=== PATIENT | female | born 1950 | race African-American/Black ===

== ENCOUNTER 2020-11-10 05:16 | Day surgery (SDC) | payer OTHER ==
[2020-11-09 17:37] VITALS: BMI 30.9
[2020-11-10] MEDS ORDERED: HEPARIN NA (PORCINE) 5,000 UNITS/ML 1ML VIAL ONE ×3 (07:26→14:21)
[2020-11-10] MEDS ORDERED: LIDOCAINE HCL 1%, 10 MG/ML (20ML VIAL) ONE ×2 (07:27→12:56)
[2020-11-10] MEDS ORDERED: ceFAZolin SODIUM 1 GM VIAL IVPB ONE (13:10)
[2020-11-10] MEDS ORDERED: MIDAZOLAM HCL 2 MG/2 ML SINGLE DOSE VIAL ONE ×2 (13:17→13:38)
[2020-11-10] MEDS ORDERED: ceFAZolin SODIUM 1 GM VIAL ONE (13:38)
[2020-11-10] MEDS ORDERED: LIDOCAINE HCL 1%, 10 MG/ML (20ML VIAL) PNB ONE (13:55)
[2020-11-10] MEDS ORDERED: DEXAMETHASONE SOD PHOSPHATE 4 MG/1 ML VIAL ONE (14:06)
[2020-11-10] MEDS ORDERED: oxyCODONE HCL 5 MG TABLET PO PRN (15:13)
[2020-11-10] MEDS ORDERED: ONDANSETRON 4 MG/2 ML VIAL IVPUSH PRN (15:13)
[2020-11-10] MEDS ORDERED: LACTATED RINGERS SOLUTION 1,000 ML IV SCH (15:15)
[2020-11-10] MEDS ORDERED: ePHEDrine SULFATE 50 MG/1 ML AMPULE ONE (16:27)
[2020-11-10] MEDS ORDERED: GLYCOPYRROLATE 0.2 MG/1 ML VIAL ONE (16:28)
[2020-11-10] MEDS: ACETAMINOPHEN 1000 MG/100 ML VIAL (NON FORMULARY) IVPB ONE ×2 (17:30→17:40)
[2020-11-10] MEDS ORDERED: ACETAMINOPHEN INJECTION 100 ML IVPB ONE (17:39)
[2020-11-10] MEDS ORDERED: oxyCODONE HCL 5 MG TABLET ONE (18:03)
[2020-11-10 18:51] VITALS: BP 95/51; PULSE 103; TEMP 96.9
== END 2020-11-10 20:30 | disposition home or self-care (01) ==
LOC: JASU-SURG 05:16
PROVIDERS: ATTEND Surgery Vascular Surgery
PROC: 047Q3ZZ Dilation of Left Anterior Tibial Artery, Percutaneous Approach (ICD-10-PCS; principal; 2020-11-10 12:00)
DX: I70.212 Atherosclerosis of native arteries of extremities with intermittent claudication, left leg (principal); L97.529 Non-pressure chronic ulcer of other part of left foot with unspecified severity
CPT/HCPCS: 37229; C1885; 76000-TC-FY; 94760; J0131; J1644

== ENCOUNTER 2021-01-25 13:12 | Inpatient (IN) | payer OTHER ==
[2021-01-25] MEDS ORDERED: SODIUM CHLORIDE 500 ML IV STA (14:30)
[2021-01-25] MEDS ORDERED: ACETAMINOPHEN 1000 MG/100 ML VIAL (NON FORMULARY) IVPB ONE (15:28)
[2021-01-25] MEDS ORDERED: traMADol HCL 50 MG TABLET PO ONE ×2 (15:28→22:09)
[2021-01-25] MEDS ORDERED: traMADol HCL 50 MG TABLET ONE (15:41)
[2021-01-25] MEDS ORDERED: ACETAMINOPHEN INJECTION 100 ML IVPB ONE (15:42)
[2021-01-25 16:02] LABS: URINE APPEARANCE TURBID; URINE BILIRUBIN 2+ (NEGATIVE); URINE COLOR RED; URINE GLUCOSE (UA) NEGATIVE (NEGATIVE); URINE KETONE NEGATIVE (NEGATIVE); URINE LEUK ESTERASE 3+ (NEGATIVE); URINE NITRITE POSITIVE (NEGATIVE); URINE PROTEIN 1+ (NEGATIVE); URINE UROBILINOGEN 0.2 mg/dL (0.2-1.0)
[2021-01-25] MEDS ORDERED: CEFEPIME HCL/D5W 1 GM/50 ML BAG IVPB ONE (16:06)
[2021-01-25] MEDS ORDERED: VANCOMYCIN 1 GM in D5W (PRE-DOCKED) 1,000 MG/250 ML IVPB ONE (16:06)
[2021-01-25 16:14] LABS: EPI CELLS NONE SEEN /uL (0-25.1); HYALINE CASTS NONE SEEN /uL (0-3.1)
[2021-01-25 16:15] LABS: INR 1.16 (0.83-1.09); PROTHROMBIN TIME (PATIENT) 14.2 SEC (9.7-13.0)
[2021-01-25 16:15] LABS: URINE BACTERIA NONE SEEN /uL (0-1359); URINE RBC 30-35 /uL (0-23.9); URINE WBC 15-20 /uL (0-25.8)
[2021-01-25 16:41] LABS: BASO % 0.4 % (0-2.0); EOS % 2.6 % (0-4.5); HEMATOCRIT 38.4 % (32.4-45.2); HEMOGLOBIN 12.5 GM/dL (10.7-15.3); MCH 28.6 pg (25.7-33.7); MCHC 32.4 g/dl (32.0-36.0); MEAN CELL VOLUME 88.3 fl (80-96); MEAN PLT VOLUME 9.4 fl (7.5-11.1); MONO % 9.2 % (3.8-10.2); NEUT % 74.8 % (42.8-82.8); PLATELET COUNT 284 K/MM3 (134-434); RBC 4.35 M/mm3 (3.60-5.2); RDW 15.6 % (11.6-15.6); WHITE BLOOD COUNT 10.3 K/mm3 (4.0-10.0)
[2021-01-25 17:11] LABS: POTASSIUM 4.3 mmol/L (3.5-5.1)
[2021-01-25 17:12] LABS: CALCIUM 9.6 mg/dL (8.5-10.1)
[2021-01-25 17:13] LABS: ALBUMIN 3.8 g/dl (3.4-5.0); BLOOD UREA NITROGEN 15.6 mg/dL (7-18); MAGNESIUM 2.2 mg/dL (1.8-2.4)
[2021-01-25 17:16] LABS: CREATININE 0.7 mg/dL (0.55-1.3)
[2021-01-25 17:18] LABS: BILIRUBIN,TOTAL 0.3 mg/dL (0.2-1); TOT PROT 8.4 g/dl (6.4-8.2)
[2021-01-25] MEDS ORDERED: VANCOMYCIN 1 GRAM (PRE-DOCKED) 1,000 MG/250 ML BAG IVPB ONE (17:28)
[2021-01-25] MEDS ORDERED: CEFEPIME 1 GM/100 ML BAG IVPB ONE (17:29)
[2021-01-25] MEDS ORDERED: DOCUSATE SODIUM 100 MG CAPSULE (FP) PO ONE ×2 (18:30→20:06)
[2021-01-25] MEDS ORDERED: oxyCODONE HCL 5 MG TABLET PO ONE (18:30)
[2021-01-25] MEDS ORDERED: oxyCODONE HCL 5 MG TABLET ONE (18:36)
[2021-01-25] MEDS ORDERED: LIDOCAINE 5% TOPICAL PATCH TP ONE (20:52)
[2021-01-25] MEDS: LIDOCAINE PATCH REMOVAL MC SCH (22:51)
[2021-01-26] MEDS ORDERED: MORPHINE SULFATE 2 MG/ML VIAL IVPUSH ONE (00:22)
[2021-01-26] MEDS ORDERED: CEFEPIME HCL/D5W 1 GM/50 ML BAG IVPB SCH (02:00)
[2021-01-26] MEDS ORDERED: CEFEPIME 1 GM in DEXTROSE 5%-WATER - 50 ML IVPB SCH (02:42)
[2021-01-26 02:47] VITALS: BMI 30.7
[2021-01-26] MEDS: ACETAMINOPHEN 1000 MG/100 ML VIAL (NON FORMULARY) IVPB PRN ×2 (04:41→19:08)
[2021-01-26 07:54] LABS: BASO % 0.4 % (0-2.0); EOS % 3.1 % (0-4.5); HEMATOCRIT 33.4 % (32.4-45.2); HEMOGLOBIN 11.1 GM/dL (10.7-15.3); LYMPH % 16.6 % (8-40); MCH 28.9 pg (25.7-33.7); MCHC 33.2 g/dl (32.0-36.0); MEAN CELL VOLUME 87.2 fl (80-96); MEAN PLT VOLUME 8.6 fl (7.5-11.1); MONO % 11.6 % (3.8-10.2); NEUT % 68.3 % (42.8-82.8); PLATELET COUNT 247 K/MM3 (134-434); RBC 3.83 M/mm3 (3.60-5.2); RDW 15.6 % (11.6-15.6); WHITE BLOOD COUNT 6.9 K/mm3 (4.0-10.0)
[2021-01-26] MEDS ORDERED: GABAPENTIN 300 MG CAPSULE PO SCH (08:00)
[2021-01-26] MEDS ORDERED: traMADol HCL 50 MG TABLET PO ONE (08:00)
[2021-01-26 08:25] LABS: POTASSIUM 4.3 mmol/L (3.5-5.1)
[2021-01-26 08:32] LABS: CALCIUM 8.6 mg/dL (8.5-10.1)
[2021-01-26 08:33] LABS: ALBUMIN 3.1 g/dl (3.4-5.0); BLOOD UREA NITROGEN 12.4 mg/dL (7-18); MAGNESIUM 2.1 mg/dL (1.8-2.4)
[2021-01-26 08:36] LABS: CREATININE 0.6 mg/dL (0.55-1.3); PHOSPHOROUS 3.9 mg/dL (2.5-4.9)
[2021-01-26 08:38] LABS: BILIRUBIN,TOTAL 0.4 mg/dL (0.2-1); TOT PROT 6.9 g/dl (6.4-8.2)
[2021-01-26] MEDS ORDERED: DEXTROSE 5%-WATER - 50 ML IVPB ONE (09:42)
[2021-01-26] MEDS ORDERED: CEFEPIME HCL 1 GM VIAL (RESTRICTED TO ID) ONE ×2 (09:42→16:07)
[2021-01-26] MEDS: METOPROLOL TARTRATE 25 MG TABLET (FP) PO SCH ×2 (09:51→21:00)
[2021-01-26] MEDS: PANTOPRAZOLE 20 MG TABLET PO SCH (09:51)
[2021-01-26] MEDS ORDERED: PIPERACILLIN/TAZOB 3.375 GM 3.375 GM in DEXTROSE 5%-WATER - 50 ML IVPB SCH (10:00)
[2021-01-26] MEDS ORDERED: AZTREONAM 1 GM in DEXTROSE 5%-WATER - 50 ML IVPB SCH (11:30)
[2021-01-26] MEDS ORDERED: VANCOMYCIN 1 GM in D5W (PRE-DOCKED) 1,000 MG/250 ML IVPB SCH (12:00)
[2021-01-26] MEDS ORDERED: VANCOMYCIN 1 GRAM (PRE-DOCKED) 1,000 MG/250 ML BAG IVPB ONE (12:00)
[2021-01-26] MEDS ORDERED: GABAPENTIN 100 MG CAPSULE ONE (13:04)
[2021-01-26] MEDS ORDERED: GABAPENTIN 300 MG CAPSULE ONE (13:04)
[2021-01-26] MEDS: GABAPENTIN 300 MG CAPSULE PO SCH ×2 (13:25→21:00)
[2021-01-26] MEDS: ARIPiprazole 2 MG TABLET PO SCH (13:27)
[2021-01-26] MEDS ORDERED: GABAPENTIN 300 MG, GABAPENTIN 200 MG PO SCH (14:00)
[2021-01-26] MEDS ORDERED: DEXTROSE 5%-WATER 100 ML IVPB ONE (16:07)
[2021-01-26] MEDS: traMADol HCL 50 MG TABLET PO PRN (16:11)
[2021-01-26] MEDS: CEFEPIME 1 GM in DEXTROSE 5%-WATER 1 GM/100 ML BAG IVPB SCH (17:47)
[2021-01-26] MEDS: traZODone HCL 50 MG TABLET (FP) PO SCH (21:00)
[2021-01-26] MEDS: ATORVASTATIN CA 40 MG TABLET (FP) PO SCH (21:00)
[2021-01-26] MEDS: LIDOCAINE PATCH REMOVAL MC SCH (21:00)
[2021-01-26] MEDS ORDERED: PRAMIPEXOLE DIHYDROCHLORIDE 0.5 MG TABLET PO SCH (22:00)
[2021-01-27] MEDS ORDERED: CEFEPIME HCL 1 GM VIAL (RESTRICTED TO ID) ONE ×3 (00:40→16:38)
[2021-01-27] MEDS ORDERED: DEXTROSE 5%-WATER 100 ML IVPB ONE ×3 (00:40→16:38)
[2021-01-27] MEDS: CEFEPIME 1 GM in DEXTROSE 5%-WATER 1 GM/100 ML BAG IVPB SCH ×3 (02:00→18:19)
[2021-01-27] MEDS: traMADol HCL 50 MG TABLET PO PRN ×2 (03:47→11:03)
[2021-01-27] MEDS: GABAPENTIN 300 MG CAPSULE PO SCH ×3 (06:02→21:48)
[2021-01-27 07:14] LABS: HEMATOCRIT 34.1 % (32.4-45.2); HEMOGLOBIN 11.1 GM/dL (10.7-15.3); MCH 28.7 pg (25.7-33.7); MCHC 32.6 g/dl (32.0-36.0); MEAN CELL VOLUME 88.1 fl (80-96); MEAN PLT VOLUME 9.3 fl (7.5-11.1); PLATELET COUNT 252 K/MM3 (134-434); RBC 3.87 M/mm3 (3.60-5.2); RDW 15.3 % (11.6-15.6); WHITE BLOOD COUNT 6.1 K/mm3 (4.0-10.0)
[2021-01-27 07:34] LABS: POTASSIUM 3.9 mmol/L (3.5-5.1)
[2021-01-27 07:42] LABS: BLOOD UREA NITROGEN 14.9 mg/dL (7-18); CALCIUM 8.5 mg/dL (8.5-10.1); CREATININE 0.5 mg/dL (0.55-1.3)
[2021-01-27] MEDS ORDERED: PT OWN MED DRAWER 7, Y5N ONE (08:32)
[2021-01-27] MEDS: ASPIRIN 81 MG CHEWABLE TABLETS PO SCH (09:14)
[2021-01-27] MEDS: METOPROLOL TARTRATE 25 MG TABLET (FP) PO SCH ×2 (09:14→21:48)
[2021-01-27] MEDS: PANTOPRAZOLE 20 MG TABLET PO SCH (09:14)
[2021-01-27] MEDS: CLOPIDOGREL BISULFATE 75 MG TABLET (FP) PO SCH (09:14)
[2021-01-27] MEDS: ARIPiprazole 2 MG TABLET PO SCH (09:15)
[2021-01-27] MEDS: LIDOCAINE 5% TOPICAL PATCH TP SCH (11:04)
[2021-01-27] MEDS: ACETAMINOPHEN 325 MG TABLET (FP) PO PRN ×2 (13:20→21:55)
[2021-01-27] MEDS: oxyCODONE HCL 5 MG TABLET PO PRN (18:18)
[2021-01-27] MEDS: COLLAGENASE CLOSTRIDIUM HIST. 30 GRAMS TUBE TP SCH (19:29)
[2021-01-27] MEDS: PRAMIPEXOLE DIHYDROCHLORIDE 0.25 MG TABLET PO SCH (21:49)
[2021-01-27] MEDS: traZODone HCL 50 MG TABLET (FP) PO SCH (21:49)
[2021-01-27] MEDS: LIDOCAINE PATCH REMOVAL MC SCH (21:50)
[2021-01-27] MEDS: ATORVASTATIN CA 40 MG TABLET (FP) PO SCH (21:57)
[2021-01-27] MEDS ORDERED: LIDOCAINE PATCH REMOVAL MC SCH ×2 (22:00)
[2021-01-28] MEDS ORDERED: CEFEPIME HCL 1 GM VIAL (RESTRICTED TO ID) ONE ×3 (01:58→18:08)
[2021-01-28] MEDS ORDERED: DEXTROSE 5%-WATER 100 ML IVPB ONE ×3 (01:59→18:08)
[2021-01-28] MEDS: CEFEPIME 1 GM in DEXTROSE 5%-WATER 1 GM/100 ML BAG IVPB SCH ×3 (02:25→18:10)
[2021-01-28] MEDS: oxyCODONE HCL 5 MG TABLET PO PRN ×3 (03:45→20:54)
[2021-01-28] MEDS: GABAPENTIN 300 MG CAPSULE PO SCH ×3 (05:49→21:07)
[2021-01-28] MEDS: ACETAMINOPHEN 325 MG TABLET (FP) PO PRN ×3 (05:51→18:24)
[2021-01-28] MEDS ORDERED: PT OWN MED DRAWER 7, Y5N ONE ×3 (09:36→14:09)
[2021-01-28] MEDS: METOPROLOL TARTRATE 25 MG TABLET (FP) PO SCH ×2 (09:38→21:06)
[2021-01-28] MEDS: ASPIRIN 81 MG CHEWABLE TABLETS PO SCH (09:38)
[2021-01-28] MEDS: CLOPIDOGREL BISULFATE 75 MG TABLET (FP) PO SCH (09:38)
[2021-01-28] MEDS: PANTOPRAZOLE 20 MG TABLET PO SCH (09:38)
[2021-01-28] MEDS: ARIPiprazole 2 MG TABLET PO SCH (09:41)
[2021-01-28] MEDS: LIDOCAINE 5% TOPICAL PATCH TP SCH (09:42)
[2021-01-28 09:53] LABS: BASO % 0.6 % (0-2.0); EOS % 6.4 % (0-4.5); HEMATOCRIT 34.8 % (32.4-45.2); HEMOGLOBIN 11.3 GM/dL (10.7-15.3); LYMPH % 16.3 % (8-40); MCH 28.7 pg (25.7-33.7); MCHC 32.5 g/dl (32.0-36.0); MEAN CELL VOLUME 88.4 fl (80-96); MEAN PLT VOLUME 9.4 fl (7.5-11.1); MONO % 11.8 % (3.8-10.2); NEUT % 64.9 % (42.8-82.8); PLATELET COUNT 228 K/MM3 (134-434); RBC 3.94 M/mm3 (3.60-5.2); RDW 15.4 % (11.6-15.6); WHITE BLOOD COUNT 6.5 K/mm3 (4.0-10.0)
[2021-01-28 10:08] LABS: POTASSIUM 4.6 mmol/L (3.5-5.1)
[2021-01-28 10:11] LABS: ALBUMIN 3.1 g/dl (3.4-5.0); BLOOD UREA NITROGEN 21.6 mg/dL (7-18); CALCIUM 9.1 mg/dL (8.5-10.1)
[2021-01-28 10:14] LABS: CREATININE 0.7 mg/dL (0.55-1.3)
[2021-01-28 10:16] LABS: BILIRUBIN,TOTAL 0.3 mg/dL (0.2-1)
[2021-01-28 10:17] LABS: TOT PROT 7.2 g/dl (6.4-8.2)
[2021-01-28] MEDS ORDERED: METOPROLOL TARTRATE 25 MG TABLET (FP) PO SCH (12:28)
[2021-01-28] MEDS: COLLAGENASE CLOSTRIDIUM HIST. 30 GRAMS TUBE TP SCH (14:28)
[2021-01-28] MEDS: traMADol HCL 50 MG TABLET PO PRN (15:22)
[2021-01-28] MEDS: ATORVASTATIN CA 40 MG TABLET (FP) PO SCH (21:06)
[2021-01-28] MEDS: LIDOCAINE PATCH REMOVAL MC SCH (21:10)
[2021-01-28] MEDS: traZODone HCL 50 MG TABLET (FP) PO SCH (21:11)
[2021-01-28] MEDS: PRAMIPEXOLE DIHYDROCHLORIDE 0.25 MG TABLET PO SCH (21:11)
[2021-01-29] MEDS: SENNOSIDES 8.6MG TABLET (FP) PO SCH ×2 (00:35→21:14)
[2021-01-29] MEDS ORDERED: CEFEPIME HCL 1 GM VIAL (RESTRICTED TO ID) ONE ×3 (00:44→17:50)
[2021-01-29] MEDS ORDERED: DEXTROSE 5%-WATER 100 ML IVPB ONE ×3 (00:44→17:51)
[2021-01-29] MEDS: CEFEPIME 1 GM in DEXTROSE 5%-WATER 1 GM/100 ML BAG IVPB SCH ×3 (01:01→17:53)
[2021-01-29] MEDS: oxyCODONE HCL 5 MG TABLET PO PRN ×3 (03:58→20:29)
[2021-01-29] MEDS: GABAPENTIN 300 MG CAPSULE PO SCH ×3 (05:19→21:14)
[2021-01-29 09:21] LABS: POTASSIUM 4.2 mmol/L (3.5-5.1)
[2021-01-29 09:31] LABS: ALBUMIN 3.3 g/dl (3.4-5.0); CALCIUM 9.2 mg/dL (8.5-10.1)
[2021-01-29 09:32] LABS: BLOOD UREA NITROGEN 17.7 mg/dL (7-18)
[2021-01-29 09:34] LABS: CREATININE 0.6 mg/dL (0.55-1.3)
[2021-01-29 09:36] LABS: BILIRUBIN,TOTAL 0.3 mg/dL (0.2-1); TOT PROT 7.2 g/dl (6.4-8.2)
[2021-01-29] MEDS: traMADol HCL 50 MG TABLET PO PRN ×2 (09:37→18:08)
[2021-01-29] MEDS ORDERED: PT OWN MED DRAWER 7, Y5N ONE (10:00)
[2021-01-29] MEDS: PANTOPRAZOLE 20 MG TABLET PO SCH (10:02)
[2021-01-29] MEDS: CLOPIDOGREL BISULFATE 75 MG TABLET (FP) PO SCH (10:02)
[2021-01-29] MEDS: ACETAMINOPHEN 325 MG TABLET (FP) PO PRN ×2 (10:02→15:33)
[2021-01-29] MEDS: ASPIRIN 81 MG CHEWABLE TABLETS PO SCH (10:03)
[2021-01-29] MEDS: METOPROLOL TARTRATE 25 MG TABLET (FP) PO SCH ×2 (10:03→21:14)
[2021-01-29] MEDS: ARIPiprazole 2 MG TABLET PO SCH (10:04)
[2021-01-29] MEDS: LIDOCAINE 5% TOPICAL PATCH TP SCH (10:12)
[2021-01-29] MEDS: POLYETHYLENE GLYCOL 3350 119 GM BTL PO SCH (10:20)
[2021-01-29] MEDS: COLLAGENASE CLOSTRIDIUM HIST. 30 GRAMS TUBE TP SCH (15:34)
[2021-01-29] MEDS: PRAMIPEXOLE DIHYDROCHLORIDE 0.25 MG TABLET PO SCH (21:14)
[2021-01-29] MEDS: ATORVASTATIN CA 40 MG TABLET (FP) PO SCH (21:14)
[2021-01-29] MEDS: traZODone HCL 50 MG TABLET (FP) PO SCH (21:14)
[2021-01-29] MEDS: LIDOCAINE PATCH REMOVAL MC SCH (21:15)
[2021-01-30] MEDS ORDERED: CEFEPIME HCL 1 GM VIAL (RESTRICTED TO ID) ONE ×2 (00:42→10:07)
[2021-01-30] MEDS ORDERED: DEXTROSE 5%-WATER 100 ML IVPB ONE ×2 (00:42→10:07)
[2021-01-30] MEDS: CEFEPIME 1 GM in DEXTROSE 5%-WATER 1 GM/100 ML BAG IVPB SCH ×2 (01:00→10:11)
[2021-01-30] MEDS: traMADol HCL 50 MG TABLET PO PRN ×3 (01:36→18:23)
[2021-01-30] MEDS: ACETAMINOPHEN 325 MG TABLET (FP) PO PRN ×3 (04:06→21:37)
[2021-01-30] MEDS: oxyCODONE HCL 5 MG TABLET PO PRN ×2 (04:46→14:37)
[2021-01-30] MEDS: GABAPENTIN 300 MG CAPSULE PO SCH ×3 (05:02→21:31)
[2021-01-30 09:00] LABS: BASO % 0.7 % (0-2.0); EOS % 5.1 % (0-4.5); HEMATOCRIT 34.2 % (32.4-45.2); HEMOGLOBIN 11.3 GM/dL (10.7-15.3); LYMPH % 17.2 % (8-40); MCH 28.9 pg (25.7-33.7); MEAN CELL VOLUME 87.4 fl (80-96); MONO % 16.4 % (3.8-10.2); NEUT % 60.6 % (42.8-82.8); PLATELET COUNT 237 K/MM3 (134-434); RBC 3.91 M/mm3 (3.60-5.2); RDW 15.3 % (11.6-15.6)
[2021-01-30 09:24] LABS: POTASSIUM 3.9 mmol/L (3.5-5.1)
[2021-01-30 09:39] LABS: BLOOD UREA NITROGEN 16.8 mg/dL (7-18)
[2021-01-30 09:42] LABS: CREATININE 0.5 mg/dL (0.55-1.3)
[2021-01-30 09:43] LABS: CALCIUM 8.9 mg/dL (8.5-10.1)
[2021-01-30] MEDS: PANTOPRAZOLE 20 MG TABLET PO SCH (10:12)
[2021-01-30] MEDS: ASPIRIN 81 MG CHEWABLE TABLETS PO SCH (10:12)
[2021-01-30] MEDS: CLOPIDOGREL BISULFATE 75 MG TABLET (FP) PO SCH (10:12)
[2021-01-30] MEDS: METOPROLOL TARTRATE 25 MG TABLET (FP) PO SCH ×2 (10:12→21:32)
[2021-01-30] MEDS: LIDOCAINE 5% TOPICAL PATCH TP SCH (10:13)
[2021-01-30] MEDS: ARIPiprazole 2 MG TABLET PO SCH (10:15)
[2021-01-30] MEDS: POLYETHYLENE GLYCOL 3350 119 GM BTL PO SCH (10:16)
[2021-01-30] MEDS: COLLAGENASE CLOSTRIDIUM HIST. 30 GRAMS TUBE TP SCH (16:02)
[2021-01-30] MEDS ORDERED: CEFPODOXIME PROXETIL 100 MG TABLET PO ONE (18:27)
[2021-01-30] MEDS: ATORVASTATIN CA 40 MG TABLET (FP) PO SCH (21:31)
[2021-01-30] MEDS: traZODone HCL 50 MG TABLET (FP) PO SCH (21:31)
[2021-01-30] MEDS: PRAMIPEXOLE DIHYDROCHLORIDE 0.25 MG TABLET PO SCH (21:32)
[2021-01-30] MEDS: SENNOSIDES 8.6MG TABLET (FP) PO SCH (21:32)
[2021-01-30] MEDS: LIDOCAINE PATCH REMOVAL MC SCH (21:33)
[2021-01-30 22:06] VITALS: BP 150/65; PULSE 60; TEMP 98.6
[2021-01-31] MEDS ORDERED: oxyCODONE HCL 5 MG TABLET PO PRN (00:22)
== END 2021-01-31 01:40 | DRG 699 ==
LOC: JER 13:12 → JERBED 17:21 → J7W 22:35 → J6S 01-27 20:33
PROVIDERS: ADMIT Hospitalist; ATTEND Internal Medicine
DX: T83.518A Infection and inflammatory reaction due to other urinary catheter, initial encounter (principal); N39.0 Urinary tract infection, site not specified; G04.1 Tropical spastic paraplegia; L98.498 Non-pressure chronic ulcer of skin of other sites with other specified severity; R71.0 Precipitous drop in hematocrit; N31.9 Neuromuscular dysfunction of bladder, unspecified; F25.9 Schizoaffective disorder, unspecified; I10 Essential (primary) hypertension; K21.9 Gastro-esophageal reflux disease without esophagitis; I73.9 Peripheral vascular disease, unspecified; G89.29 Other chronic pain; Y83.8 Other surgical procedures as the cause of abnormal reaction of the patient, or of later complication, without mention of misadventure at the time of the procedure; I11.0 Hypertensive heart disease with heart failure; I50.9 Heart failure, unspecified; N20.0 Calculus of kidney; R31.0 Gross hematuria; B96.89 Other specified bacterial agents as the cause of diseases classified elsewhere; Z88.0 Allergy status to penicillin
CPT/HCPCS: 36415; 74176-TC; 80048; 80053; 81003; 83605; 83735; 84100; 85025; 85027; 85610; 86850; 86900; 86901; 87086; 87186; 97161-GP; 99285-25; C9803; J0131; U0003

== ENCOUNTER 2021-04-20 04:27 | Day surgery (SDC) | payer OTHER ==
[2021-04-19 11:01] VITALS: BMI 31.9
[2021-04-20 08:39] LABS: HEMATOCRIT 37.8 % (32.4-45.2); HEMOGLOBIN 12.3 GM/dL (10.7-15.3); MCH 29.1 pg (25.7-33.7); MCHC 32.4 g/dl (32.0-36.0); MEAN CELL VOLUME 89.8 fl (80-96); MEAN PLT VOLUME 9.3 fl (7.5-11.1); PLATELET COUNT 259 K/MM3 (134-434); RBC 4.21 M/mm3 (3.60-5.2); RDW 16.7 % (11.6-15.6); WHITE BLOOD COUNT 7.4 K/mm3 (4.0-10.0)
[2021-04-20 08:42] LABS: INR 1.12 (0.83-1.09); PROTHROMBIN TIME (PATIENT) 13.7 SEC (9.7-13.0)
[2021-04-20 08:45] LABS: ACTIVATED PTT 29.6 SECONDS (25.2-36.5)
[2021-04-20 09:01] LABS: CALCIUM 9.4 mg/dL (8.5-10.1)
[2021-04-20 09:02] LABS: BLOOD UREA NITROGEN 17.8 mg/dL (7-18)
[2021-04-20 09:05] LABS: CREATININE 0.6 mg/dL (0.55-1.3)
[2021-04-20] MEDS ORDERED: HEPARIN NA (PORCINE) 5,000 UNITS/ML 1ML VIAL ONE (10:45)
[2021-04-20] MEDS ORDERED: ceFAZolin SODIUM 1 GM VIAL IVPB ONE (10:50)
[2021-04-20] MEDS ORDERED: LIDOCAINE HCL 1%, 10 MG/ML (20ML VIAL) ONE (10:53)
[2021-04-20] MEDS ORDERED: PROPOFOL 20 ML ONE (11:02)
[2021-04-20] MEDS ORDERED: MIDAZOLAM HCL 2 MG/2 ML SINGLE DOSE VIAL ONE (11:02)
[2021-04-20] MEDS ORDERED: ceFAZolin SODIUM 1 GM VIAL ONE (11:13)
[2021-04-20] MEDS ORDERED: ACETAMINOPHEN INJECTION 100 ML IVPB ONE (11:55)
[2021-04-20] MEDS ORDERED: ACETAMINOPHEN 1000 MG/100 ML VIAL (NON FORMULARY) IVPB ONE ×2 (11:55→16:36)
[2021-04-20] MEDS ORDERED: oxyCODONE HCL 5 MG TABLET ONE (12:12)
[2021-04-20] MEDS ORDERED: oxyCODONE HCL 5 MG TABLET PO ONE (12:15)
[2021-04-20] MEDS ORDERED: ONDANSETRON 4 MG/2 ML VIAL IVPUSH PRN (12:21)
[2021-04-20] MEDS ORDERED: oxyCODONE HCL 5 MG TABLET PO PRN ×2 (12:21)
[2021-04-20] MEDS ORDERED: LACTATED RINGERS SOLUTION 1,000 ML IV SCH (12:30)
[2021-04-20 18:30] VITALS: BP 130/73; PULSE 76; TEMP 98
== END 2021-04-20 15:00 ==
LOC: JASU-SURG 04:27
PROVIDERS: ATTEND Surgery Vascular Surgery
PROC: B41DYZZ Fluoroscopy of Aorta and Bilateral Lower Extremity Arteries using Other Contrast (ICD-10-PCS; 2021-04-20)
PROC: 047K3D1 Dilation of Right Femoral Artery with Intraluminal Device, using Drug-Coated Balloon, Percutaneous Approach (ICD-10-PCS; principal; 2021-04-20 10:00)
DX: L97.829 Non-pressure chronic ulcer of other part of left lower leg with unspecified severity (principal)
CPT/HCPCS: 36245; 37226; C1877; C2623; 36415; 76000-TC-FY; 80048; 85027; 85610; 85730; 94760; J0131; J1644

== ENCOUNTER 2021-10-05 16:31 | Inpatient (IN) | payer OTHER ==
[2021-10-05] MEDS ORDERED: ACETAMINOPHEN 1000 MG/100 ML BAG IVPB ONE (17:39)
[2021-10-05] MEDS ORDERED: ACETAMINOPHEN INJECTION 100 ML IVPB ONE (18:10)
[2021-10-05 19:00] LABS: BASO % 0.3 % (0-2.0); EOS % 3.6 % (0-4.5); HEMATOCRIT 32.9 % (32.4-45.2); HEMOGLOBIN 11.3 GM/dL (10.7-15.3); LYMPH % 15.8 % (8-40); MCH 29.8 pg (25.7-33.7); MCHC 34.2 g/dl (32.0-36.0); MEAN PLT VOLUME 8.6 fl (7.5-11.1); MONO % 11.1 % (3.8-10.2); NEUT % 69.2 % (42.8-82.8); PLATELET COUNT 297 10^3/uL (134-434); RBC 3.78 M/mm3 (3.60-5.2); RDW 15.3 % (11.6-15.6); WHITE BLOOD COUNT 9.7 K/mm3 (4.0-10.0)
[2021-10-05 19:10] LABS: INR 1.19 (0.83-1.09); PROTHROMBIN TIME (PATIENT) 13.3 SEC (9.7-13.0)
[2021-10-05 19:13] LABS: ACTIVATED PTT 28.8 SECONDS (25.2-36.5)
[2021-10-05] MEDS ORDERED: VANCOMYCIN 1 GM in D5W (PRE-DOCKED) 1,000 MG/250 ML IVPB ONE (19:19)
[2021-10-05 19:24] LABS: EPI CELLS >36 /uL (0-25.1); HYALINE CASTS 2 /uL (0-3.1); URINE APPEARANCE CLEAR; URINE BACTERIA 62 /uL (0-1359); URINE BILIRUBIN NEGATIVE (NEGATIVE); URINE COLOR YELLOW; URINE GLUCOSE (UA) NEGATIVE (NEGATIVE); URINE KETONE NEGATIVE (NEGATIVE); URINE LEUK ESTERASE 2+ (NEGATIVE); URINE NITRITE NEGATIVE (NEGATIVE); URINE PROTEIN NEGATIVE (NEGATIVE); URINE UROBILINOGEN 0.2 mg/dL (0.2-1.0); URINE WBC 165 /uL (0-25.8)
[2021-10-05] MEDS ORDERED: PIPERACILLIN/TAZOB 3.375 GM 3.375 GM in DEXTROSE 5%-WATER - 50 ML IVPB ONE (19:24)
[2021-10-05 19:25] LABS: ALBUMIN 3.3 g/dl (3.4-5.0); CALCIUM 9.5 mg/dL (8.5-10.1)
[2021-10-05] MEDS ORDERED: AZTREONAM 1 GM in DEXTROSE 5%-WATER - 50 ML IVPB ONE (19:26)
[2021-10-05 19:27] LABS: BLOOD UREA NITROGEN 35.3 mg/dL (7-18)
[2021-10-05 19:30] LABS: CREATININE 0.9 mg/dL (0.55-1.3)
[2021-10-05 19:31] LABS: BILIRUBIN,TOTAL 0.3 mg/dL (0.2-1); TOT PROT 7.7 g/dl (6.4-8.2)
[2021-10-05] MEDS ORDERED: AZTREONAM 1 GM VIAL (RESTRICTED TO ID) ONE (19:39)
[2021-10-05] MEDS ORDERED: oxyCODONE HCL 5 MG TABLET PO ONE ×2 (20:18→21:43)
[2021-10-05] MEDS ORDERED: VANCOMYCIN 1 GRAM (PRE-DOCKED) 1,000 MG/250 ML BAG IVPB ONE (20:27)
[2021-10-05] MEDS ORDERED: oxyCODONE HCL 5 MG TABLET ONE ×2 (20:29→23:11)
[2021-10-05] MEDS ORDERED: ALBUTEROL SO4 HFA INHALER IH PRN (21:09)
[2021-10-05] MEDS ORDERED: POLYETHYLENE GLYCOL (HEALTHYLAX) 3350 17 GM PACKET ONE (21:44)
[2021-10-05] MEDS ORDERED: CARVEDILOL 3.125 MG TABLET (FP) ONE (21:44)
[2021-10-05] MEDS ORDERED: SENNOSIDES 8.6MG TABLET (FP) PO ONE (21:44)
[2021-10-05] MEDS ORDERED: ATORVASTATIN CA 40 MG TABLET (FP) ONE (21:45)
[2021-10-05] MEDS: CARVEDILOL 6.25 MG TABLET (FP) PO SCH (22:03)
[2021-10-05] MEDS: POLYETHYLENE GLYCOL (HEALTHYLAX) 3350 17 GM PACKET PO SCH (22:03)
[2021-10-05] MEDS: ATORVASTATIN CA 40 MG TABLET (FP) PO SCH (22:03)
[2021-10-05] MEDS: SENNOSIDES 8.6MG TABLET (FP) PO SCH (22:03)
[2021-10-05 22:15] LABS: URINE RBC 24.7 /uL (0-23.9)
[2021-10-05 22:29] LABS: CALCIUM 8.7 mg/dL (8.5-10.1)
[2021-10-05 22:31] LABS: BLOOD UREA NITROGEN 34.1 mg/dL (7-18)
[2021-10-05 22:34] LABS: CREATININE 0.9 mg/dL (0.55-1.3)
[2021-10-06] MEDS: ACETAMINOPHEN 1000 MG/100 ML BAG IVPB PRN ×3 (00:19→20:07)
[2021-10-06] MEDS ORDERED: oxyCODONE HCL 5 MG TABLET PO ONE (06:00)
[2021-10-06] MEDS: LISINOPRIL 10 MG TABLET PO SCH (06:19)
[2021-10-06] MEDS ORDERED: AZTREONAM 1 GM in DEXTROSE 5%-WATER - 50 ML IVPB SCH (08:00)
[2021-10-06] MEDS ORDERED: AZTREONAM 1 GM VIAL (RESTRICTED TO ID) ONE ×2 (08:16→18:42)
[2021-10-06] MEDS ORDERED: DEXTROSE 5%-WATER - 50 ML IVPB ONE ×2 (08:16→18:42)
[2021-10-06 08:45] LABS: INR 1.2 (0.83-1.09); PROTHROMBIN TIME (PATIENT) 14.1 SEC (9.7-13.0)
[2021-10-06 08:50] LABS: BASO % 0.8 % (0-2.0); EOS % 4.3 % (0-4.5); HEMATOCRIT 31.1 % (32.4-45.2); HEMOGLOBIN 10.7 GM/dL (10.7-15.3); LYMPH % 14.8 % (8-40); MCH 29.8 pg (25.7-33.7); MCHC 34.3 g/dl (32.0-36.0); MEAN CELL VOLUME 86.9 fl (80-96); MEAN PLT VOLUME 8.3 fl (7.5-11.1); MONO % 10.7 % (3.8-10.2); NEUT % 69.4 % (42.8-82.8); PLATELET COUNT 264 10^3/uL (134-434); RBC 3.58 M/mm3 (3.60-5.2); RDW 14.9 % (11.6-15.6)
[2021-10-06 09:01] LABS: CALCIUM 9.1 mg/dL (8.5-10.1)
[2021-10-06 09:02] LABS: BLOOD UREA NITROGEN 25.4 mg/dL (7-18)
[2021-10-06 09:04] LABS: CREATININE 0.7 mg/dL (0.55-1.3); MAGNESIUM 2.2 mg/dL (1.8-2.4); PHOSPHOROUS 2.9 mg/dL (2.5-4.9)
[2021-10-06 09:06] LABS: BILIRUBIN,TOTAL 0.4 mg/dL (0.2-1); TOT PROT 7.1 g/dl (6.4-8.2)
[2021-10-06] MEDS: ENOXAPARIN NA (PORCINE) 40 MG/0.4 ML DISP.SYRIN SQ SCH (09:55)
[2021-10-06] MEDS: VANCOMYCIN 1 GM in D5W (PRE-DOCKED) 1,000 MG/250 ML IVPB SCH ×4 (09:55→21:04)
[2021-10-06] MEDS: CARVEDILOL 6.25 MG TABLET (FP) PO SCH ×2 (09:57→21:03)
[2021-10-06] MEDS: CLOPIDOGREL BISULFATE 75 MG TABLET (FP) PO SCH (09:57)
[2021-10-06] MEDS: ESCITALOPRAM OXALATE 10 MG TABLET PO SCH (09:57)
[2021-10-06] MEDS ORDERED: oxyCODONE HCL 5 MG TABLET PO SCH (10:00)
[2021-10-06] MEDS ORDERED: ASPIRIN 325 MG TABLET PO SCH (10:00)
[2021-10-06] MEDS: GABAPENTIN 300 MG CAPSULE PO SCH ×3 (10:02→21:02)
[2021-10-06] MEDS: ASPIRIN 81 MG CHEWABLE TABLETS PO SCH (10:14)
[2021-10-06] MEDS: SODIUM HYPOCHLORITE 0.5% 473 ML- BULK BOTTLE TP SCH (13:00)
[2021-10-06] MEDS: AZTREONAM 1 GM in DEXTROSE 5%-WATER - 50 ML IVPB SCH ×2 (18:45→18:46)
[2021-10-06] MEDS: ARIPiprazole 5 MG TABLET PO SCH (18:46)
[2021-10-06] MEDS: AMINO ACIDS/PROTEIN HYDROLYS 30 ML LIQUID.PKT PO SCH (18:46)
[2021-10-06] MEDS: SENNOSIDES 8.6MG TABLET (FP) PO SCH (21:03)
[2021-10-06] MEDS: traZODone HCL 50 MG TABLET (FP) PO SCH (21:03)
[2021-10-06] MEDS: oxyCODONE HCL 10 MG SUSTAINED ACTING TABLET PO SCH (21:03)
[2021-10-06] MEDS: ATORVASTATIN CA 40 MG TABLET (FP) PO SCH (21:03)
[2021-10-06] MEDS: POLYETHYLENE GLYCOL (HEALTHYLAX) 3350 17 GM PACKET PO SCH (21:04)
[2021-10-06] MEDS ORDERED: GABAPENTIN 400 MG CAPSULE PO SCH (22:00)
[2021-10-07] MEDS ORDERED: AZTREONAM 1 GM VIAL (RESTRICTED TO ID) ONE ×3 (01:01→17:25)
[2021-10-07] MEDS ORDERED: DEXTROSE 5%-WATER - 50 ML IVPB ONE ×3 (01:01→17:25)
[2021-10-07] MEDS: AZTREONAM 1 GM in DEXTROSE 5%-WATER - 50 ML IVPB SCH ×3 (01:21→17:29)
[2021-10-07] MEDS ORDERED: LIDOCAINE 5% TOPICAL PATCH TP ONE (03:21)
[2021-10-07] MEDS ORDERED: oxyCODONE HCL 5 MG TABLET PO ONE (05:56)
[2021-10-07] MEDS: LISINOPRIL 10 MG TABLET PO SCH (06:05)
[2021-10-07 08:55] LABS: BLOOD UREA NITROGEN 21.3 mg/dL (7-18)
[2021-10-07 08:56] LABS: ALBUMIN 3.2 g/dl (3.4-5.0); CALCIUM 9.1 mg/dL (8.5-10.1)
[2021-10-07 08:59] LABS: CREATININE 0.8 mg/dL (0.55-1.3)
[2021-10-07 09:02] LABS: BILIRUBIN,TOTAL 0.3 mg/dL (0.2-1); TOT PROT 7.7 g/dl (6.4-8.2)
[2021-10-07] MEDS: oxyCODONE HCL 10 MG SUSTAINED ACTING TABLET PO SCH ×2 (09:40→22:25)
[2021-10-07] MEDS: ESCITALOPRAM OXALATE 10 MG TABLET PO SCH (09:40)
[2021-10-07] MEDS: MULTIVITAMINS THER W-MINERALS COMBO TABLET (FP) PO SCH (09:40)
[2021-10-07] MEDS: ASPIRIN 81 MG CHEWABLE TABLETS PO SCH (09:40)
[2021-10-07] MEDS: CARVEDILOL 6.25 MG TABLET (FP) PO SCH ×2 (09:40→22:24)
[2021-10-07] MEDS: AMINO ACIDS/PROTEIN HYDROLYS 30 ML LIQUID.PKT PO SCH ×2 (09:40→17:29)
[2021-10-07] MEDS: ZINC SULFATE 220 MG CAPSULE (FP) PO SCH (09:40)
[2021-10-07] MEDS: CLOPIDOGREL BISULFATE 75 MG TABLET (FP) PO SCH (09:40)
[2021-10-07] MEDS: ENOXAPARIN NA (PORCINE) 40 MG/0.4 ML DISP.SYRIN SQ SCH (09:40)
[2021-10-07] MEDS: ASCORBIC ACID 250 MG TABLET (FP) PO SCH (09:40)
[2021-10-07] MEDS: GABAPENTIN 300 MG CAPSULE PO SCH ×3 (09:56→22:25)
[2021-10-07 10:23] LABS: HEMATOCRIT 35.3 % (32.4-45.2); HEMOGLOBIN 11.6 GM/dL (10.7-15.3); MCH 29.4 pg (25.7-33.7); MEAN CELL VOLUME 89.1 fl (80-96); MEAN PLT VOLUME 8.8 fl (7.5-11.1); PLATELET COUNT 311 10^3/uL (134-434); RBC 3.96 M/mm3 (3.60-5.2); RDW 15.1 % (11.6-15.6); WHITE BLOOD COUNT 12.6 K/mm3 (4.0-10.0)
[2021-10-07] MEDS: SODIUM HYPOCHLORITE 0.5% 473 ML- BULK BOTTLE TP SCH (11:40)
[2021-10-07] MEDS: VANCOMYCIN 1 GM in D5W (PRE-DOCKED) 1,000 MG/250 ML IVPB SCH ×2 (12:39→22:26)
[2021-10-07] MEDS: ACETAMINOPHEN 1000 MG/100 ML BAG IVPB PRN (15:36)
[2021-10-07] MEDS ORDERED: PT OWN MED DRAWER 7, Y5N ONE (17:27)
[2021-10-07] MEDS: ARIPiprazole 5 MG TABLET PO SCH (17:28)
[2021-10-07] MEDS: ATORVASTATIN CA 40 MG TABLET (FP) PO SCH (22:24)
[2021-10-07] MEDS: SENNOSIDES 8.6MG TABLET (FP) PO SCH (22:24)
[2021-10-07] MEDS: traZODone HCL 50 MG TABLET (FP) PO SCH (22:24)
[2021-10-07] MEDS: POLYETHYLENE GLYCOL (HEALTHYLAX) 3350 17 GM PACKET PO SCH (22:26)
[2021-10-07] MEDS: LIDOCAINE PATCH REMOVAL MC SCH (22:46)
[2021-10-08] MEDS ORDERED: DEXTROSE 5%-WATER - 50 ML IVPB ONE ×3 (00:13→17:14)
[2021-10-08] MEDS ORDERED: AZTREONAM 1 GM VIAL (RESTRICTED TO ID) ONE ×3 (00:13→17:14)
[2021-10-08] MEDS: AZTREONAM 1 GM in DEXTROSE 5%-WATER - 50 ML IVPB SCH ×3 (01:30→17:19)
[2021-10-08] MEDS: ACETAMINOPHEN 1000 MG/100 ML BAG IVPB PRN (05:23)
[2021-10-08] MEDS: LISINOPRIL 10 MG TABLET PO SCH (06:00)
[2021-10-08 09:29] LABS: BASO % 0.4 % (0-2.0); EOS % 4.8 % (0-4.5); HEMATOCRIT 32.9 % (32.4-45.2); LYMPH % 14.5 % (8-40); MCH 29.7 pg (25.7-33.7); MCHC 33.3 g/dl (32.0-36.0); MEAN CELL VOLUME 89.4 fl (80-96); MEAN PLT VOLUME 8.7 fl (7.5-11.1); MONO % 13.3 % (3.8-10.2); PLATELET COUNT 285 10^3/uL (134-434); RBC 3.68 M/mm3 (3.60-5.2); RDW 15.4 % (11.6-15.6); WHITE BLOOD COUNT 9.8 K/mm3 (4.0-10.0)
[2021-10-08 09:49] LABS: BLOOD UREA NITROGEN 29.1 mg/dL (7-18); CALCIUM 8.8 mg/dL (8.5-10.1)
[2021-10-08 09:52] LABS: CREATININE 0.8 mg/dL (0.55-1.3)
[2021-10-08 09:53] LABS: BILIRUBIN,TOTAL 0.5 mg/dL (0.2-1); TOT PROT 7.2 g/dl (6.4-8.2)
[2021-10-08 10:00] LABS: MAGNESIUM 2.3 mg/dL (1.8-2.4)
[2021-10-08] MEDS: CARVEDILOL 6.25 MG TABLET (FP) PO SCH ×2 (10:27→21:40)
[2021-10-08] MEDS: ESCITALOPRAM OXALATE 10 MG TABLET PO SCH (10:27)
[2021-10-08] MEDS: CLOPIDOGREL BISULFATE 75 MG TABLET (FP) PO SCH (10:27)
[2021-10-08] MEDS: ZINC SULFATE 220 MG CAPSULE (FP) PO SCH (10:27)
[2021-10-08] MEDS: MULTIVITAMINS THER W-MINERALS COMBO TABLET (FP) PO SCH (10:27)
[2021-10-08] MEDS: oxyCODONE HCL 10 MG SUSTAINED ACTING TABLET PO SCH ×2 (10:27→21:39)
[2021-10-08] MEDS: ASPIRIN 81 MG CHEWABLE TABLETS PO SCH (10:27)
[2021-10-08] MEDS: ENOXAPARIN NA (PORCINE) 40 MG/0.4 ML DISP.SYRIN SQ SCH (10:28)
[2021-10-08] MEDS: ASCORBIC ACID 250 MG TABLET (FP) PO SCH (10:28)
[2021-10-08] MEDS: AMINO ACIDS/PROTEIN HYDROLYS 30 ML LIQUID.PKT PO SCH ×2 (10:29→17:18)
[2021-10-08] MEDS: SODIUM HYPOCHLORITE 0.5% 473 ML- BULK BOTTLE TP SCH (10:29)
[2021-10-08] MEDS: GABAPENTIN 300 MG CAPSULE PO SCH ×3 (10:42→21:38)
[2021-10-08] MEDS: traMADol HCL 50 MG TABLET PO PRN (17:17)
[2021-10-08] MEDS: ARIPiprazole 5 MG TABLET PO SCH (17:18)
[2021-10-08] MEDS: traZODone HCL 50 MG TABLET (FP) PO SCH (21:39)
[2021-10-08] MEDS: SENNOSIDES 8.6MG TABLET (FP) PO SCH (21:40)
[2021-10-08] MEDS: POLYETHYLENE GLYCOL (HEALTHYLAX) 3350 17 GM PACKET PO SCH (21:40)
[2021-10-08] MEDS: ATORVASTATIN CA 40 MG TABLET (FP) PO SCH (21:40)
[2021-10-08] MEDS: VANCOMYCIN 1 GM in D5W (PRE-DOCKED) 1,000 MG/250 ML IVPB SCH (21:41)
[2021-10-09] MEDS ORDERED: AZTREONAM 1 GM VIAL (RESTRICTED TO ID) ONE ×3 (01:17→17:49)
[2021-10-09] MEDS ORDERED: DEXTROSE 5%-WATER - 50 ML IVPB ONE ×3 (01:17→17:49)
[2021-10-09] MEDS: AZTREONAM 1 GM in DEXTROSE 5%-WATER - 50 ML IVPB SCH ×3 (01:29→18:21)
[2021-10-09] MEDS: traMADol HCL 50 MG TABLET PO PRN ×3 (01:43→16:27)
[2021-10-09] MEDS: LIDOCAINE PATCH REMOVAL MC SCH ×2 (05:57→22:16)
[2021-10-09] MEDS: LISINOPRIL 10 MG TABLET PO SCH (06:37)
[2021-10-09] MEDS: ESCITALOPRAM OXALATE 10 MG TABLET PO SCH (09:34)
[2021-10-09] MEDS: ASCORBIC ACID 250 MG TABLET (FP) PO SCH (09:34)
[2021-10-09] MEDS: oxyCODONE HCL 10 MG SUSTAINED ACTING TABLET PO SCH ×2 (09:34→22:13)
[2021-10-09] MEDS: MULTIVITAMINS THER W-MINERALS COMBO TABLET (FP) PO SCH (09:34)
[2021-10-09] MEDS: ENOXAPARIN NA (PORCINE) 40 MG/0.4 ML DISP.SYRIN SQ SCH (09:35)
[2021-10-09] MEDS: ZINC SULFATE 220 MG CAPSULE (FP) PO SCH (09:35)
[2021-10-09] MEDS: CARVEDILOL 6.25 MG TABLET (FP) PO SCH ×2 (09:35→22:14)
[2021-10-09] MEDS: AMINO ACIDS/PROTEIN HYDROLYS 30 ML LIQUID.PKT PO SCH ×2 (09:35→18:21)
[2021-10-09] MEDS: GABAPENTIN 300 MG CAPSULE PO SCH ×3 (09:35→22:18)
[2021-10-09] MEDS: CLOPIDOGREL BISULFATE 75 MG TABLET (FP) PO SCH (09:35)
[2021-10-09] MEDS: ASPIRIN 81 MG CHEWABLE TABLETS PO SCH (09:35)
[2021-10-09] MEDS ORDERED: PT OWN MED DRAWER 7, Y5N ONE (10:17)
[2021-10-09 11:57] LABS: HEMATOCRIT 31.5 % (32.4-45.2); HEMOGLOBIN 10.5 GM/dL (10.7-15.3); MCH 29.7 pg (25.7-33.7); MCHC 33.5 g/dl (32.0-36.0); MEAN CELL VOLUME 88.8 fl (80-96); MEAN PLT VOLUME 8.5 fl (7.5-11.1); PLATELET COUNT 259 10^3/uL (134-434); RBC 3.55 M/mm3 (3.60-5.2); RDW 15.1 % (11.6-15.6); WHITE BLOOD COUNT 10.1 K/mm3 (4.0-10.0)
[2021-10-09 12:19] LABS: CALCIUM 8.7 mg/dL (8.5-10.1)
[2021-10-09 12:20] LABS: ALBUMIN 2.8 g/dl (3.4-5.0); BLOOD UREA NITROGEN 36.2 mg/dL (7-18)
[2021-10-09 12:23] LABS: CREATININE 0.8 mg/dL (0.55-1.3)
[2021-10-09 12:25] LABS: BILIRUBIN,TOTAL 0.3 mg/dL (0.2-1); TOT PROT 6.8 g/dl (6.4-8.2)
[2021-10-09] MEDS: SODIUM HYPOCHLORITE 0.5% 473 ML- BULK BOTTLE TP SCH (14:44)
[2021-10-09] MEDS: ARIPiprazole 5 MG TABLET PO SCH (18:22)
[2021-10-09] MEDS ORDERED: ACETAMINOPHEN 1000 MG/100 ML BAG IVPB ONE (18:39)
[2021-10-09] MEDS: traZODone HCL 50 MG TABLET (FP) PO SCH (22:13)
[2021-10-09] MEDS: VANCOMYCIN 1 GM in D5W (PRE-DOCKED) 1,000 MG/250 ML IVPB SCH (22:14)
[2021-10-09] MEDS: SENNOSIDES 8.6MG TABLET (FP) PO SCH (22:14)
[2021-10-09] MEDS: POLYETHYLENE GLYCOL (HEALTHYLAX) 3350 17 GM PACKET PO SCH (22:14)
[2021-10-09] MEDS: ATORVASTATIN CA 40 MG TABLET (FP) PO SCH (22:14)
[2021-10-10] MEDS ORDERED: AZTREONAM 1 GM VIAL (RESTRICTED TO ID) ONE ×3 (02:12→17:13)
[2021-10-10] MEDS ORDERED: DEXTROSE 5%-WATER - 50 ML IVPB ONE ×3 (02:12→17:14)
[2021-10-10] MEDS: AZTREONAM 1 GM in DEXTROSE 5%-WATER - 50 ML IVPB SCH ×3 (02:54→17:18)
[2021-10-10] MEDS: traMADol HCL 50 MG TABLET PO PRN ×2 (03:42→15:17)
[2021-10-10] MEDS: LISINOPRIL 10 MG TABLET PO SCH (07:01)
[2021-10-10] MEDS: AMINO ACIDS/PROTEIN HYDROLYS 30 ML LIQUID.PKT PO SCH ×2 (09:16→17:20)
[2021-10-10] MEDS: ASCORBIC ACID 250 MG TABLET (FP) PO SCH (09:16)
[2021-10-10] MEDS: oxyCODONE HCL 10 MG SUSTAINED ACTING TABLET PO SCH ×2 (09:16→21:47)
[2021-10-10] MEDS: CARVEDILOL 6.25 MG TABLET (FP) PO SCH ×2 (09:17→21:47)
[2021-10-10] MEDS: CLOPIDOGREL BISULFATE 75 MG TABLET (FP) PO SCH (09:17)
[2021-10-10] MEDS: ESCITALOPRAM OXALATE 10 MG TABLET PO SCH (09:17)
[2021-10-10] MEDS: ZINC SULFATE 220 MG CAPSULE (FP) PO SCH (09:17)
[2021-10-10] MEDS: ASPIRIN 81 MG CHEWABLE TABLETS PO SCH (09:17)
[2021-10-10] MEDS: ENOXAPARIN NA (PORCINE) 40 MG/0.4 ML DISP.SYRIN SQ SCH (09:17)
[2021-10-10] MEDS: SODIUM HYPOCHLORITE 0.5% 473 ML- BULK BOTTLE TP SCH (09:17)
[2021-10-10] MEDS: MULTIVITAMINS THER W-MINERALS COMBO TABLET (FP) PO SCH (09:18)
[2021-10-10 09:33] LABS: HEMATOCRIT 33.1 % (32.4-45.2); HEMOGLOBIN 10.8 GM/dL (10.7-15.3); MCH 29.3 pg (25.7-33.7); MCHC 32.6 g/dl (32.0-36.0); MEAN CELL VOLUME 90.1 fl (80-96); MEAN PLT VOLUME 8.7 fl (7.5-11.1); PLATELET COUNT 277 10^3/uL (134-434); RBC 3.67 M/mm3 (3.60-5.2); RDW 15.7 % (11.6-15.6); WHITE BLOOD COUNT 11.4 K/mm3 (4.0-10.0)
[2021-10-10] MEDS: GABAPENTIN 300 MG CAPSULE PO SCH ×3 (09:36→21:51)
[2021-10-10 09:54] LABS: BLOOD UREA NITROGEN 30.2 mg/dL (7-18)
[2021-10-10 09:55] LABS: ALBUMIN 2.9 g/dl (3.4-5.0)
[2021-10-10 09:58] LABS: CREATININE 0.7 mg/dL (0.55-1.3)
[2021-10-10 09:59] LABS: BILIRUBIN,TOTAL 0.4 mg/dL (0.2-1)
[2021-10-10 10:01] LABS: TOT PROT 7.4 g/dl (6.4-8.2)
[2021-10-10] MEDS ORDERED: PT OWN MED DRAWER 7, Y5N ONE (14:13)
[2021-10-10] MEDS: ACETAMINOPHEN 325 MG TABLET (FP) PO PRN (17:18)
[2021-10-10] MEDS: ARIPiprazole 5 MG TABLET PO SCH (17:18)
[2021-10-10] MEDS: ATORVASTATIN CA 40 MG TABLET (FP) PO SCH (21:46)
[2021-10-10] MEDS: traZODone HCL 50 MG TABLET (FP) PO SCH (21:46)
[2021-10-10] MEDS: SENNOSIDES 8.6MG TABLET (FP) PO SCH (21:46)
[2021-10-10] MEDS: POLYETHYLENE GLYCOL (HEALTHYLAX) 3350 17 GM PACKET PO SCH (21:47)
[2021-10-10] MEDS: VANCOMYCIN 1 GM in D5W (PRE-DOCKED) 1,000 MG/250 ML IVPB SCH (21:47)
[2021-10-10] MEDS: LIDOCAINE PATCH REMOVAL MC SCH (21:50)
[2021-10-11] MEDS ORDERED: AZTREONAM 1 GM VIAL (RESTRICTED TO ID) ONE ×3 (01:33→18:34)
[2021-10-11] MEDS ORDERED: DEXTROSE 5%-WATER - 50 ML IVPB ONE ×3 (01:34→18:34)
[2021-10-11] MEDS: ACETAMINOPHEN 325 MG TABLET (FP) PO PRN ×2 (02:26→21:58)
[2021-10-11] MEDS: AZTREONAM 1 GM in DEXTROSE 5%-WATER - 50 ML IVPB SCH ×3 (02:30→18:42)
[2021-10-11] MEDS: traMADol HCL 50 MG TABLET PO PRN ×3 (03:20→20:21)
[2021-10-11] MEDS: LISINOPRIL 10 MG TABLET PO SCH (06:23)
[2021-10-11] MEDS: GABAPENTIN 300 MG CAPSULE PO SCH ×3 (08:09→22:02)
[2021-10-11] MEDS: AMINO ACIDS/PROTEIN HYDROLYS 30 ML LIQUID.PKT PO SCH ×2 (08:09→18:42)
[2021-10-11] MEDS: oxyCODONE HCL 10 MG SUSTAINED ACTING TABLET PO SCH ×2 (09:53→21:59)
[2021-10-11] MEDS: MULTIVITAMINS THER W-MINERALS COMBO TABLET (FP) PO SCH (09:54)
[2021-10-11] MEDS: CARVEDILOL 6.25 MG TABLET (FP) PO SCH ×2 (09:55→21:59)
[2021-10-11] MEDS: ZINC SULFATE 220 MG CAPSULE (FP) PO SCH (09:55)
[2021-10-11] MEDS: CLOPIDOGREL BISULFATE 75 MG TABLET (FP) PO SCH (09:55)
[2021-10-11] MEDS: ESCITALOPRAM OXALATE 10 MG TABLET PO SCH (09:55)
[2021-10-11] MEDS: ENOXAPARIN NA (PORCINE) 40 MG/0.4 ML DISP.SYRIN SQ SCH (09:55)
[2021-10-11] MEDS: ASCORBIC ACID 250 MG TABLET (FP) PO SCH (09:56)
[2021-10-11] MEDS: LIDOCAINE 5% TOPICAL PATCH TP SCH (09:56)
[2021-10-11] MEDS: ASPIRIN 81 MG CHEWABLE TABLETS PO SCH (09:56)
[2021-10-11] MEDS ORDERED: LIDOCAINE 5% TOPICAL PATCH TP SCH (10:00)
[2021-10-11 11:29] LABS: HEMOGLOBIN 10.4 GM/dL (10.7-15.3); MCH 29.3 pg (25.7-33.7); MCHC 32.7 g/dl (32.0-36.0); MEAN CELL VOLUME 89.7 fl (80-96); MEAN PLT VOLUME 8.5 fl (7.5-11.1); PLATELET COUNT 255 10^3/uL (134-434); RBC 3.57 M/mm3 (3.60-5.2); RDW 15.6 % (11.6-15.6); WHITE BLOOD COUNT 9.7 K/mm3 (4.0-10.0)
[2021-10-11] MEDS: SODIUM HYPOCHLORITE 0.5% 473 ML- BULK BOTTLE TP SCH (11:34)
[2021-10-11 11:55] LABS: ALBUMIN 2.7 g/dl (3.4-5.0); BLOOD UREA NITROGEN 30.5 mg/dL (7-18)
[2021-10-11 11:58] LABS: CREATININE 0.7 mg/dL (0.55-1.3)
[2021-10-11 12:00] LABS: BILIRUBIN,TOTAL 0.5 mg/dL (0.2-1); TOT PROT 6.9 g/dl (6.4-8.2)
[2021-10-11] MEDS: COLLAGENASE CLOSTRIDIUM HIST. 30 GRAMS TUBE TP SCH (12:00)
[2021-10-11] MEDS: ARIPiprazole 5 MG TABLET PO SCH (18:41)
[2021-10-11] MEDS: traZODone HCL 50 MG TABLET (FP) PO SCH (21:59)
[2021-10-11] MEDS: SENNOSIDES 8.6MG TABLET (FP) PO SCH (21:59)
[2021-10-11] MEDS: ATORVASTATIN CA 40 MG TABLET (FP) PO SCH (21:59)
[2021-10-11] MEDS: VANCOMYCIN 1 GM in D5W (PRE-DOCKED) 1,000 MG/250 ML IVPB SCH (22:00)
[2021-10-11] MEDS ORDERED: oxyCODONE HCL 10 MG SUSTAINED ACTING TABLET PO SCH (22:00)
[2021-10-11] MEDS: LIDOCAINE PATCH REMOVAL MC SCH (22:00)
[2021-10-11] MEDS: POLYETHYLENE GLYCOL (HEALTHYLAX) 3350 17 GM PACKET PO SCH (22:00)
[2021-10-12] MEDS ORDERED: AZTREONAM 1 GM VIAL (RESTRICTED TO ID) ONE ×2 (01:31→08:49)
[2021-10-12] MEDS ORDERED: DEXTROSE 5%-WATER - 50 ML IVPB ONE ×2 (01:31→08:49)
[2021-10-12] MEDS: traMADol HCL 50 MG TABLET PO PRN ×2 (01:35→13:43)
[2021-10-12] MEDS: AZTREONAM 1 GM in DEXTROSE 5%-WATER - 50 ML IVPB SCH (01:35)
[2021-10-12] MEDS: LISINOPRIL 10 MG TABLET PO SCH (06:31)
[2021-10-12] MEDS ORDERED: PT OWN MED DRAWER 7, Y5N ONE ×2 (08:51→21:53)
[2021-10-12] MEDS: ASCORBIC ACID 250 MG TABLET (FP) PO SCH (10:36)
[2021-10-12] MEDS: AMINO ACIDS/PROTEIN HYDROLYS 30 ML LIQUID.PKT PO SCH ×2 (10:36→18:30)
[2021-10-12] MEDS: LIDOCAINE 5% TOPICAL PATCH TP SCH (10:37)
[2021-10-12] MEDS: CARVEDILOL 6.25 MG TABLET (FP) PO SCH ×2 (10:37→21:57)
[2021-10-12] MEDS: ZINC SULFATE 220 MG CAPSULE (FP) PO SCH (10:37)
[2021-10-12] MEDS: ESCITALOPRAM OXALATE 10 MG TABLET PO SCH (10:37)
[2021-10-12] MEDS: MULTIVITAMINS THER W-MINERALS COMBO TABLET (FP) PO SCH (10:38)
[2021-10-12] MEDS: COLLAGENASE CLOSTRIDIUM HIST. 30 GRAMS TUBE TP SCH (10:38)
[2021-10-12] MEDS: CEFEPIME 2 GM in DEXTROSE 5%-WATER 100 ML IVPB SCH ×2 (11:00→21:58)
[2021-10-12] MEDS: oxyCODONE HCL 10 MG SUSTAINED ACTING TABLET PO SCH ×2 (11:00→21:57)
[2021-10-12] MEDS: GABAPENTIN 300 MG CAPSULE PO SCH ×3 (11:01→21:57)
[2021-10-12] MEDS: SODIUM HYPOCHLORITE 0.5% 473 ML- BULK BOTTLE TP SCH (12:27)
[2021-10-12 12:37] LABS: HEMATOCRIT 30.4 % (32.4-45.2); HEMOGLOBIN 9.9 GM/dL (10.7-15.3); MCH 28.9 pg (25.7-33.7); MCHC 32.6 g/dl (32.0-36.0); MEAN CELL VOLUME 88.5 fl (80-96); MEAN PLT VOLUME 8.4 fl (7.5-11.1); PLATELET COUNT 242 10^3/uL (134-434); RBC 3.44 M/mm3 (3.60-5.2); RDW 15.4 % (11.6-15.6); WHITE BLOOD COUNT 11.3 K/mm3 (4.0-10.0)
[2021-10-12 12:51] LABS: ALBUMIN 2.5 g/dl (3.4-5.0)
[2021-10-12 12:52] LABS: BLOOD UREA NITROGEN 24.3 mg/dL (7-18); CALCIUM 8.5 mg/dL (8.5-10.1)
[2021-10-12 12:55] LABS: CREATININE 0.7 mg/dL (0.55-1.3)
[2021-10-12 12:57] LABS: BILIRUBIN,TOTAL 0.2 mg/dL (0.2-1); TOT PROT 6.7 g/dl (6.4-8.2)
[2021-10-12] MEDS: ENOXAPARIN NA (PORCINE) 40 MG/0.4 ML DISP.SYRIN SQ SCH (13:36)
[2021-10-12] MEDS: CLOPIDOGREL BISULFATE 75 MG TABLET (FP) PO SCH (13:36)
[2021-10-12] MEDS: ASPIRIN 81 MG CHEWABLE TABLETS PO SCH (13:36)
[2021-10-12] MEDS: ARIPiprazole 5 MG TABLET PO SCH (18:30)
[2021-10-12] MEDS: ACETAMINOPHEN 325 MG TABLET (FP) PO PRN (20:31)
[2021-10-12] MEDS: ATORVASTATIN CA 40 MG TABLET (FP) PO SCH (21:57)
[2021-10-12] MEDS: traZODone HCL 50 MG TABLET (FP) PO SCH (21:57)
[2021-10-12] MEDS: POLYETHYLENE GLYCOL (HEALTHYLAX) 3350 17 GM PACKET PO SCH (21:58)
[2021-10-12] MEDS: LIDOCAINE PATCH REMOVAL MC SCH (21:58)
[2021-10-12] MEDS: SENNOSIDES 8.6MG TABLET (FP) PO SCH (21:59)
[2021-10-12] MEDS: VANCOMYCIN 1 GM in D5W (PRE-DOCKED) 1,000 MG/250 ML IVPB SCH (22:52)
[2021-10-13] MEDS: traMADol HCL 50 MG TABLET PO PRN ×2 (01:52→15:28)
[2021-10-13] MEDS: LISINOPRIL 10 MG TABLET PO SCH (06:43)
[2021-10-13 09:26] LABS: BASO % 0.8 % (0-2.0); HEMATOCRIT 29.6 % (32.4-45.2); LYMPH % 9.3 % (8-40); MCH 29.3 pg (25.7-33.7); MCHC 33.6 g/dl (32.0-36.0); MONO % 13.1 % (3.8-10.2); NEUT % 74.8 % (42.8-82.8); PLATELET COUNT 245 10^3/uL (134-434); RDW 15.2 % (11.6-15.6); WHITE BLOOD COUNT 11.3 K/mm3 (4.0-10.0)
[2021-10-13] MEDS: ZINC SULFATE 220 MG CAPSULE (FP) PO SCH (09:38)
[2021-10-13] MEDS: MULTIVITAMINS THER W-MINERALS COMBO TABLET (FP) PO SCH (09:38)
[2021-10-13] MEDS: oxyCODONE HCL 10 MG SUSTAINED ACTING TABLET PO SCH (09:39)
[2021-10-13] MEDS: ESCITALOPRAM OXALATE 10 MG TABLET PO SCH (09:39)
[2021-10-13] MEDS: ASCORBIC ACID 250 MG TABLET (FP) PO SCH (09:40)
[2021-10-13] MEDS: GABAPENTIN 300 MG CAPSULE PO SCH ×3 (09:40→21:20)
[2021-10-13] MEDS: CARVEDILOL 6.25 MG TABLET (FP) PO SCH ×2 (09:40→21:21)
[2021-10-13] MEDS: AMINO ACIDS/PROTEIN HYDROLYS 30 ML LIQUID.PKT PO SCH ×2 (09:40→17:24)
[2021-10-13] MEDS: LIDOCAINE 5% TOPICAL PATCH TP SCH (13:30)
[2021-10-13] MEDS: CLOPIDOGREL BISULFATE 75 MG TABLET (FP) PO SCH (13:31)
[2021-10-13] MEDS: ASPIRIN 81 MG CHEWABLE TABLETS PO SCH (13:31)
[2021-10-13] MEDS: COLLAGENASE CLOSTRIDIUM HIST. 30 GRAMS TUBE TP SCH (13:36)
[2021-10-13] MEDS: CEFEPIME 2 GM in DEXTROSE 5%-WATER 100 ML IVPB SCH ×2 (13:36→21:38)
[2021-10-13] MEDS: ARIPiprazole 5 MG TABLET PO SCH (17:24)
[2021-10-13] MEDS ORDERED: PT OWN MED DRAWER 7, Y5N ONE (20:43)
[2021-10-13] MEDS: ACETAMINOPHEN 325 MG TABLET (FP) PO PRN (21:18)
[2021-10-13] MEDS: traZODone HCL 50 MG TABLET (FP) PO SCH (21:20)
[2021-10-13] MEDS: oxyCODONE HCL 20 MG SUSTAINED ACTING TABLET PO SCH (21:20)
[2021-10-13] MEDS: SENNOSIDES 8.6MG TABLET (FP) PO SCH ×2 (21:21→21:40)
[2021-10-13] MEDS: ATORVASTATIN CA 40 MG TABLET (FP) PO SCH (21:21)
[2021-10-13] MEDS: POLYETHYLENE GLYCOL (HEALTHYLAX) 3350 17 GM PACKET PO SCH ×2 (21:22→21:39)
[2021-10-13] MEDS: VANCOMYCIN 1 GM in D5W (PRE-DOCKED) 1,000 MG/250 ML IVPB SCH (21:27)
[2021-10-13] MEDS: LIDOCAINE PATCH REMOVAL MC SCH (21:38)
[2021-10-14] MEDS: traMADol HCL 50 MG TABLET PO PRN ×2 (01:38→05:58)
[2021-10-14] MEDS: LISINOPRIL 10 MG TABLET PO SCH (06:01)
[2021-10-14] MEDS: GABAPENTIN 300 MG CAPSULE PO SCH ×3 (09:33→21:04)
[2021-10-14] MEDS: ZINC SULFATE 220 MG CAPSULE (FP) PO SCH (09:33)
[2021-10-14] MEDS: CARVEDILOL 6.25 MG TABLET (FP) PO SCH ×2 (09:33→21:04)
[2021-10-14] MEDS: AMINO ACIDS/PROTEIN HYDROLYS 30 ML LIQUID.PKT PO SCH ×2 (09:33→17:00)
[2021-10-14] MEDS: ESCITALOPRAM OXALATE 10 MG TABLET PO SCH (09:34)
[2021-10-14] MEDS: MULTIVITAMINS THER W-MINERALS COMBO TABLET (FP) PO SCH (09:34)
[2021-10-14] MEDS: ASPIRIN 81 MG CHEWABLE TABLETS PO SCH (09:34)
[2021-10-14] MEDS: ASCORBIC ACID 250 MG TABLET (FP) PO SCH (09:34)
[2021-10-14] MEDS: CLOPIDOGREL BISULFATE 75 MG TABLET (FP) PO SCH (09:34)
[2021-10-14] MEDS: LIDOCAINE 5% TOPICAL PATCH TP SCH (09:35)
[2021-10-14] MEDS: oxyCODONE HCL 20 MG SUSTAINED ACTING TABLET PO SCH ×2 (09:35→21:06)
[2021-10-14] MEDS: CEFEPIME 2 GM in DEXTROSE 5%-WATER 100 ML IVPB SCH ×2 (09:35→21:05)
[2021-10-14] MEDS: COLLAGENASE CLOSTRIDIUM HIST. 30 GRAMS TUBE TP SCH (09:36)
[2021-10-14] MEDS: ENOXAPARIN NA (PORCINE) 40 MG/0.4 ML DISP.SYRIN SQ SCH (13:19)
[2021-10-14] MEDS: ARIPiprazole 5 MG TABLET PO SCH (17:00)
[2021-10-14] MEDS ORDERED: PT OWN MED DRAWER 7, Y5N ONE (20:57)
[2021-10-14] MEDS: ATORVASTATIN CA 40 MG TABLET (FP) PO SCH (21:05)
[2021-10-14] MEDS: traZODone HCL 50 MG TABLET (FP) PO SCH (21:05)
[2021-10-14] MEDS: SENNOSIDES 8.6MG TABLET (FP) PO SCH (21:05)
[2021-10-14] MEDS: ACETAMINOPHEN 325 MG TABLET (FP) PO PRN (22:50)
[2021-10-14] MEDS: POLYETHYLENE GLYCOL (HEALTHYLAX) 3350 17 GM PACKET PO SCH (22:50)
[2021-10-14] MEDS: VANCOMYCIN 1 GM in D5W (PRE-DOCKED) 1,000 MG/250 ML IVPB SCH (22:50)
[2021-10-15] MEDS: LIDOCAINE PATCH REMOVAL MC SCH ×2 (00:56→21:57)
[2021-10-15] MEDS: traMADol HCL 50 MG TABLET PO PRN (06:28)
[2021-10-15] MEDS: LISINOPRIL 10 MG TABLET PO SCH (06:28)
[2021-10-15] MEDS ORDERED: PT OWN MED DRAWER 7, Y5N ONE (08:54)
[2021-10-15] MEDS: AMINO ACIDS/PROTEIN HYDROLYS 30 ML LIQUID.PKT PO SCH ×2 (08:59→18:15)
[2021-10-15] MEDS: GABAPENTIN 300 MG CAPSULE PO SCH ×3 (08:59→21:59)
[2021-10-15] MEDS: CLOPIDOGREL BISULFATE 75 MG TABLET (FP) PO SCH (09:00)
[2021-10-15] MEDS: oxyCODONE HCL 20 MG SUSTAINED ACTING TABLET PO SCH ×2 (09:00→21:56)
[2021-10-15] MEDS: CARVEDILOL 6.25 MG TABLET (FP) PO SCH ×2 (09:00→21:51)
[2021-10-15] MEDS: ASPIRIN 81 MG CHEWABLE TABLETS PO SCH (09:00)
[2021-10-15] MEDS: ESCITALOPRAM OXALATE 10 MG TABLET PO SCH (09:00)
[2021-10-15] MEDS: ENOXAPARIN NA (PORCINE) 40 MG/0.4 ML DISP.SYRIN SQ SCH (09:01)
[2021-10-15] MEDS: LIDOCAINE 5% TOPICAL PATCH TP SCH (09:01)
[2021-10-15] MEDS: ASCORBIC ACID 250 MG TABLET (FP) PO SCH (09:01)
[2021-10-15] MEDS: CEFEPIME 2 GM in DEXTROSE 5%-WATER 100 ML IVPB SCH ×2 (09:01→21:51)
[2021-10-15] MEDS: ZINC SULFATE 220 MG CAPSULE (FP) PO SCH (09:01)
[2021-10-15] MEDS: MULTIVITAMINS THER W-MINERALS COMBO TABLET (FP) PO SCH (09:02)
[2021-10-15] MEDS ORDERED: ALTEPLASE (CATHFLO) 2 MG/2 ML VIAL IVPUSH ONE (10:55)
[2021-10-15 11:48] LABS: BASO % 0.4 % (0-2.0); EOS % 2.9 % (0-4.5); HEMATOCRIT 28.4 % (32.4-45.2); HEMOGLOBIN 9.5 GM/dL (10.7-15.3); LYMPH % 7.1 % (8-40); MCH 29.8 pg (25.7-33.7); MCHC 33.4 g/dl (32.0-36.0); MEAN CELL VOLUME 89.2 fl (80-96); MEAN PLT VOLUME 8.6 fl (7.5-11.1); NEUT % 75.6 % (42.8-82.8); PLATELET COUNT 277 10^3/uL (134-434); RBC 3.18 M/mm3 (3.60-5.2); RDW 15.3 % (11.6-15.6)
[2021-10-15] MEDS: COLLAGENASE CLOSTRIDIUM HIST. 30 GRAMS TUBE TP SCH (11:49)
[2021-10-15 12:02] LABS: ALBUMIN 2.4 g/dl (3.4-5.0); BLOOD UREA NITROGEN 22.6 mg/dL (7-18); CALCIUM 8.4 mg/dL (8.5-10.1); MAGNESIUM 2.2 mg/dL (1.8-2.4)
[2021-10-15 12:05] LABS: CREATININE 0.7 mg/dL (0.55-1.3)
[2021-10-15 12:06] LABS: PHOSPHOROUS 2.6 mg/dL (2.5-4.9)
[2021-10-15 12:07] LABS: BILIRUBIN,TOTAL 0.2 mg/dL (0.2-1); TOT PROT 6.5 g/dl (6.4-8.2)
[2021-10-15] MEDS: ARIPiprazole 5 MG TABLET PO SCH (18:15)
[2021-10-15] MEDS: SENNOSIDES 8.6MG TABLET (FP) PO SCH (21:51)
[2021-10-15] MEDS: ATORVASTATIN CA 40 MG TABLET (FP) PO SCH (21:51)
[2021-10-15] MEDS: traZODone HCL 50 MG TABLET (FP) PO SCH (21:51)
[2021-10-15] MEDS: POLYETHYLENE GLYCOL (HEALTHYLAX) 3350 17 GM PACKET PO SCH (21:56)
[2021-10-15] MEDS ORDERED: VANCOMYCIN/WATER BAGS 1,250 MG/250 ML BAG IVPB SCH (22:00)
[2021-10-16] MEDS: LISINOPRIL 10 MG TABLET PO SCH (06:37)
[2021-10-16] MEDS: ACETAMINOPHEN 325 MG TABLET (FP) PO PRN ×2 (06:37→13:57)
[2021-10-16 08:44] LABS: BASO % 0.3 % (0-2.0); EOS % 2.6 % (0-4.5); HEMATOCRIT 26.2 % (32.4-45.2); HEMOGLOBIN 8.9 GM/dL (10.7-15.3); LYMPH % 8.1 % (8-40); MCH 29.9 pg (25.7-33.7); MCHC 34.1 g/dl (32.0-36.0); MEAN CELL VOLUME 87.7 fl (80-96); MEAN PLT VOLUME 8.7 fl (7.5-11.1); MONO % 16.3 % (3.8-10.2); NEUT % 72.7 % (42.8-82.8); PLATELET COUNT 285 10^3/uL (134-434); RBC 2.99 M/mm3 (3.60-5.2); WHITE BLOOD COUNT 10.5 K/mm3 (4.0-10.0)
[2021-10-16] MEDS: AMINO ACIDS/PROTEIN HYDROLYS 30 ML LIQUID.PKT PO SCH ×2 (09:42→17:25)
[2021-10-16] MEDS: ENOXAPARIN NA (PORCINE) 40 MG/0.4 ML DISP.SYRIN SQ SCH (09:44)
[2021-10-16] MEDS ORDERED: PT OWN MED DRAWER 7, Y5N ONE ×2 (09:48→18:48)
[2021-10-16 09:56] LABS: ALBUMIN 2.2 g/dl (3.4-5.0); BLOOD UREA NITROGEN 21.6 mg/dL (7-18); CALCIUM 8.6 mg/dL (8.5-10.1)
[2021-10-16] MEDS: CLOPIDOGREL BISULFATE 75 MG TABLET (FP) PO SCH (09:56)
[2021-10-16] MEDS: CARVEDILOL 6.25 MG TABLET (FP) PO SCH ×2 (09:56→22:57)
[2021-10-16] MEDS: ASCORBIC ACID 250 MG TABLET (FP) PO SCH (09:56)
[2021-10-16] MEDS: ESCITALOPRAM OXALATE 10 MG TABLET PO SCH (09:56)
[2021-10-16] MEDS: ASPIRIN 81 MG CHEWABLE TABLETS PO SCH (09:56)
[2021-10-16] MEDS: MULTIVITAMINS THER W-MINERALS COMBO TABLET (FP) PO SCH (09:56)
[2021-10-16] MEDS: ZINC SULFATE 220 MG CAPSULE (FP) PO SCH (09:56)
[2021-10-16 09:57] LABS: MAGNESIUM 2.4 mg/dL (1.8-2.4)
[2021-10-16] MEDS: oxyCODONE HCL 20 MG SUSTAINED ACTING TABLET PO SCH ×2 (09:57→22:57)
[2021-10-16] MEDS: LIDOCAINE 5% TOPICAL PATCH TP SCH (09:58)
[2021-10-16] MEDS: CEFEPIME 2 GM in DEXTROSE 5%-WATER 100 ML IVPB SCH ×2 (09:58→23:00)
[2021-10-16 10:00] LABS: BILIRUBIN,TOTAL 0.7 mg/dL (0.2-1); CREATININE 0.6 mg/dL (0.55-1.3); PHOSPHOROUS 3.1 mg/dL (2.5-4.9); TOT PROT 6.3 g/dl (6.4-8.2)
[2021-10-16] MEDS: GABAPENTIN 300 MG CAPSULE PO SCH ×3 (10:02→22:56)
[2021-10-16] MEDS: COLLAGENASE CLOSTRIDIUM HIST. 30 GRAMS TUBE TP SCH (10:05)
[2021-10-16] MEDS: ARIPiprazole 5 MG TABLET PO SCH (18:00)
[2021-10-16] MEDS ORDERED: LIDOCAINE HCL 1%, 10 MG/ML (20ML VIAL) ONE (18:21)
[2021-10-16] MEDS ORDERED: HEPARIN NA (PORCINE) 5,000 UNITS/ML 1ML VIAL ONE (18:21)
[2021-10-16] MEDS ORDERED: ONDANSETRON 4 MG/2 ML VIAL ONE ×2 (19:13→19:31)
[2021-10-16] MEDS ORDERED: MIDAZOLAM HCL 2 MG/2 ML SINGLE DOSE VIAL ONE (19:14)
[2021-10-16] MEDS ORDERED: ceFAZolin SODIUM 1 GM VIAL IVPB ONE (19:30)
[2021-10-16] MEDS ORDERED: LIDOCAINE HCL 1%, 10 MG/ML (50 mL VIAL) INF ONE (19:31)
[2021-10-16] MEDS ORDERED: ceFAZolin SODIUM 1 GM VIAL ONE (19:31)
[2021-10-16] MEDS ORDERED: ALBUTEROL SO4 HFA INHALER IH PRN (20:43)
[2021-10-16] MEDS: POLYETHYLENE GLYCOL (HEALTHYLAX) 3350 17 GM PACKET PO SCH (22:55)
[2021-10-16] MEDS: traZODone HCL 50 MG TABLET (FP) PO SCH (22:57)
[2021-10-16] MEDS: SENNOSIDES 8.6MG TABLET (FP) PO SCH (22:59)
[2021-10-16] MEDS: ATORVASTATIN CA 40 MG TABLET (FP) PO SCH (22:59)
[2021-10-16] MEDS: LIDOCAINE PATCH REMOVAL MC SCH (23:00)
[2021-10-17] MEDS ORDERED: SODIUM CHLORIDE 250 ML IV STA (02:17)
[2021-10-17] MEDS: VANCOMYCIN/WATER BAGS 1,250 MG/250 ML BAG IVPB SCH ×2 (02:55→23:03)
[2021-10-17] MEDS ORDERED: LISINOPRIL 10 MG TABLET PO SCH (07:00)
[2021-10-17] MEDS: GABAPENTIN 300 MG CAPSULE PO SCH ×3 (08:31→22:12)
[2021-10-17] MEDS: ACETAMINOPHEN 325 MG TABLET (FP) PO PRN ×2 (08:31→21:06)
[2021-10-17] MEDS: AMINO ACIDS/PROTEIN HYDROLYS 30 ML LIQUID.PKT PO SCH ×2 (08:31→17:32)
[2021-10-17] MEDS ORDERED: PT OWN MED DRAWER 7, Y5N ONE ×2 (09:15→22:05)
[2021-10-17] MEDS: oxyCODONE HCL 20 MG SUSTAINED ACTING TABLET PO SCH ×2 (09:26→22:09)
[2021-10-17] MEDS: CARVEDILOL 6.25 MG TABLET (FP) PO SCH ×2 (09:26→22:09)
[2021-10-17] MEDS: CEFEPIME 2 GM in DEXTROSE 5%-WATER 100 ML IVPB SCH ×2 (09:26→22:10)
[2021-10-17 09:47] LABS: BASO % 0.4 % (0-2.0); EOS % 2.3 % (0-4.5); HEMATOCRIT 31.5 % (32.4-45.2); HEMOGLOBIN 10.1 GM/dL (10.7-15.3); MCH 29.2 pg (25.7-33.7); MEAN CELL VOLUME 91.2 fl (80-96); MEAN PLT VOLUME 8.6 fl (7.5-11.1); MONO % 12.5 % (3.8-10.2); NEUT % 77.8 % (42.8-82.8); PLATELET COUNT 292 10^3/uL (134-434); RBC 3.46 M/mm3 (3.60-5.2); RDW 15.2 % (11.6-15.6); WHITE BLOOD COUNT 10.6 K/mm3 (4.0-10.0)
[2021-10-17] MEDS ORDERED: MULTIVITAMINS THER W-MINERALS COMBO TABLET (FP) PO SCH (10:00)
[2021-10-17] MEDS ORDERED: LIDOCAINE 5% TOPICAL PATCH TP SCH (10:00)
[2021-10-17] MEDS ORDERED: ZINC SULFATE 220 MG CAPSULE (FP) PO SCH (10:00)
[2021-10-17] MEDS ORDERED: COLLAGENASE CLOSTRIDIUM HIST. 30 GRAMS TUBE TP SCH (10:00)
[2021-10-17] MEDS ORDERED: ENOXAPARIN NA (PORCINE) 40 MG/0.4 ML DISP.SYRIN SQ SCH (10:00)
[2021-10-17] MEDS ORDERED: ESCITALOPRAM OXALATE 10 MG TABLET PO SCH (10:00)
[2021-10-17] MEDS ORDERED: ASPIRIN 81 MG CHEWABLE TABLETS PO SCH (10:00)
[2021-10-17] MEDS ORDERED: CLOPIDOGREL BISULFATE 75 MG TABLET (FP) PO SCH (10:00)
[2021-10-17] MEDS ORDERED: ASCORBIC ACID 250 MG TABLET (FP) PO SCH (10:00)
[2021-10-17 11:34] LABS: ALBUMIN 2.5 g/dl (3.4-5.0); BLOOD UREA NITROGEN 18.2 mg/dL (7-18)
[2021-10-17 11:35] LABS: MAGNESIUM 2.4 mg/dL (1.8-2.4)
[2021-10-17 11:37] LABS: BILIRUBIN,TOTAL 0.6 mg/dL (0.2-1); CREATININE 0.6 mg/dL (0.55-1.3); PHOSPHOROUS 3.3 mg/dL (2.5-4.9)
[2021-10-17 12:16] VITALS: BMI 33.4
[2021-10-17] MEDS ORDERED: ARIPiprazole 5 MG TABLET PO SCH (18:00)
[2021-10-17] MEDS: traZODone HCL 50 MG TABLET (FP) PO SCH (22:09)
[2021-10-17] MEDS: LIDOCAINE PATCH REMOVAL MC SCH (22:10)
[2021-10-17] MEDS: SENNOSIDES 8.6MG TABLET (FP) PO SCH (22:10)
[2021-10-17] MEDS: ATORVASTATIN CA 40 MG TABLET (FP) PO SCH (22:10)
[2021-10-17] MEDS: POLYETHYLENE GLYCOL (HEALTHYLAX) 3350 17 GM PACKET PO SCH (22:10)
[2021-10-17 23:08] VITALS: BP 124/69; PULSE 75; TEMP 98
== END 2021-10-17 23:15 | DRG 253 ==
LOC: JER 16:31 → JERBED 17:31 → J8W 23:29
PROVIDERS: ADMIT Internal Medicine; ATTEND Internal Medicine
PROC: 02HV33Z Insertion of Infusion Device into Superior Vena Cava, Percutaneous Approach (ICD-10-PCS; 2021-10-13)
PROC: B518ZZA Fluoroscopy of Superior Vena Cava, Guidance (ICD-10-PCS; 2021-10-13)
PROC: B41DZZZ Fluoroscopy of Aorta and Bilateral Lower Extremity Arteries (ICD-10-PCS; 2021-10-16)
PROC: B40GYZZ Plain Radiography of Left Lower Extremity Arteries using Other Contrast (ICD-10-PCS; 2021-10-16)
PROC: 047L3ZZ Dilation of Left Femoral Artery, Percutaneous Approach (ICD-10-PCS; principal; 2021-10-16 17:00)
DX: I73.9 Peripheral vascular disease, unspecified (principal); L97.528 Non-pressure chronic ulcer of other part of left foot with other specified severity; M86.9 Osteomyelitis, unspecified; G04.1 Tropical spastic paraplegia; N39.0 Urinary tract infection, site not specified; N17.9 Acute kidney failure, unspecified; T82.858A Stenosis of other vascular prosthetic devices, implants and grafts, initial encounter; K21.9 Gastro-esophageal reflux disease without esophagitis; F20.9 Schizophrenia, unspecified; J44.9 Chronic obstructive pulmonary disease, unspecified; I25.10 Atherosclerotic heart disease of native coronary artery without angina pectoris; E78.00 Pure hypercholesterolemia, unspecified; I11.0 Hypertensive heart disease with heart failure; I50.9 Heart failure, unspecified; E87.5 Hyperkalemia; B96.4 Proteus (mirabilis) (morganii) as the cause of diseases classified elsewhere; D72.829 Elevated white blood cell count, unspecified; R20.8 Other disturbances of skin sensation; M62.838 Other muscle spasm; K59.00 Constipation, unspecified; Y83.8 Other surgical procedures as the cause of abnormal reaction of the patient, or of later complication, without mention of misadventure at the time of the procedure; Z88.0 Allergy status to penicillin
CPT/HCPCS: 11042; 36415; 36569; 71045-TC-FY; 73630-TC-LT; 73723-LT; 76000-TC-FY; 77001-TC-FY; 80048; 80053; 81003; 83605; 83735; 84100; 85025; 85027; 85610; 85651; 85730; 86140; 86850; 86900; 86901; 87040; 87070; 87077; 87086; 87186; 87205; 93005; 93010; 93970-TC; 94760; 99285-25; A9579; C1751; C9803; G0480; J0131; J1644; U0003; U0005

== ENCOUNTER 2021-11-13 17:33 | Inpatient (IN) | payer OTHER ==
[~2021-11-13 17:33] MED LIST: CEFEPIME 2 GM in DEXTROSE 5%-WATER 100 ML IVPB SCH
[2021-11-13] MEDS ORDERED: ACETAMINOPHEN 1000 MG/100 ML BAG IVPB ONE (18:32)
[2021-11-13] MEDS ORDERED: CEFEPIME HCL/D5W 2 GM/50 ML BAG IVPB ONE (18:32)
[2021-11-13] MEDS ORDERED: VANCOMYCIN 1 GM in D5W (PRE-DOCKED) 1,000 MG/250 ML IVPB ONE (18:32)
[2021-11-13] MEDS ORDERED: VANCOMYCIN 1 GRAM (PRE-DOCKED) 1,000 MG/250 ML BAG IVPB ONE (19:34)
[2021-11-13] MEDS ORDERED: ACETAMINOPHEN INJECTION 100 ML IVPB ONE (19:34)
[2021-11-13] MEDS ORDERED: CEFEPIME 2 GM/100 ML BAG IVPB ONE (19:35)
[2021-11-13 20:48] LABS: BASO % 0.7 % (0-2.0); EOS % 4.9 % (0-4.5); HEMATOCRIT 30.4 % (32.4-45.2); LYMPH % 10.3 % (8-40); MCH 28.5 pg (25.7-33.7); MCHC 32.9 g/dl (32.0-36.0); MEAN CELL VOLUME 86.8 fl (80-96); MEAN PLT VOLUME 8.9 fl (7.5-11.1); MONO % 14.8 % (3.8-10.2); NEUT % 69.3 % (42.8-82.8); PLATELET COUNT 271 10^3/uL (134-434); RDW 16.2 % (11.6-15.6); WHITE BLOOD COUNT 10.4 K/mm3 (4.0-10.0)
[2021-11-13 20:54] LABS: INR 1.33 (0.83-1.09); PROTHROMBIN TIME (PATIENT) 14.9 SEC (9.7-13.0)
[2021-11-13 20:57] LABS: ACTIVATED PTT 21.1 SECONDS (25.2-36.5)
[2021-11-13 21:06] LABS: CALCIUM 8.9 mg/dL (8.5-10.1)
[2021-11-13 21:07] LABS: ALBUMIN 2.5 g/dl (3.4-5.0); BLOOD UREA NITROGEN 33.4 mg/dL (7-18)
[2021-11-13 21:10] LABS: CREATININE 0.9 mg/dL (0.55-1.3)
[2021-11-13 21:11] LABS: TOT PROT 7.3 g/dl (6.4-8.2)
[2021-11-13 21:12] LABS: BILIRUBIN,TOTAL 0.3 mg/dL (0.2-1)
[2021-11-13 21:45] LABS: ERYTHROCYTE SEDIMENTATION RATE 101 mm/hr (0-30)
[2021-11-13] MEDS ORDERED: ACETAMINOPHEN 325 MG TABLET (FP) PO PRN (22:54)
[2021-11-13] MEDS ORDERED: SODIUM CHLORIDE 1,000 ML IV SCH (23:15)
[2021-11-14] MEDS ORDERED: oxyCODONE HCL 5 MG TABLET PO PRN (01:11)
[2021-11-14] MEDS ORDERED: ALBUTEROL SO4 HFA INHALER IH PRN (01:12)
[2021-11-14] MEDS ORDERED: SENNOSIDES 8.6MG TABLET (FP) PO PRN (01:12)
[2021-11-14] MEDS ORDERED: oxyCODONE HCL 5 MG TABLET ONE ×2 (02:59→14:20)
[2021-11-14] MEDS: GABAPENTIN 400 MG CAPSULE PO SCH ×3 (06:45→22:43)
[2021-11-14 08:38] LABS: BASO % 0.5 % (0-2.0); EOS % 5.1 % (0-4.5); HEMATOCRIT 30.1 % (32.4-45.2); HEMOGLOBIN 9.9 GM/dL (10.7-15.3); LYMPH % 8.6 % (8-40); MCH 28.9 pg (25.7-33.7); MCHC 32.8 g/dl (32.0-36.0); MEAN PLT VOLUME 9.1 fl (7.5-11.1); NEUT % 72.8 % (42.8-82.8); PLATELET COUNT 258 10^3/uL (134-434); RBC 3.41 M/mm3 (3.60-5.2); RDW 15.9 % (11.6-15.6); WHITE BLOOD COUNT 9.2 K/mm3 (4.0-10.0)
[2021-11-14 08:41] LABS: BLOOD UREA NITROGEN 30.5 mg/dL (7-18); CALCIUM 8.2 mg/dL (8.5-10.1)
[2021-11-14 08:43] LABS: ALBUMIN 2.1 g/dl (3.4-5.0); MAGNESIUM 2.3 mg/dL (1.8-2.4)
[2021-11-14 08:45] LABS: CREATININE 0.8 mg/dL (0.55-1.3)
[2021-11-14 08:46] LABS: BILIRUBIN,TOTAL 0.3 mg/dL (0.2-1); TOT PROT 6.5 g/dl (6.4-8.2)
[2021-11-14] MEDS ORDERED: CEFEPIME 2 GM IVPB SCH (10:00)
[2021-11-14] MEDS ORDERED: ARIPIPRAZOLE 1 MG/ML PO SCH (10:00)
[2021-11-14] MEDS ORDERED: CARVEDILOL 6.25 MG TABLET (FP) PO SCH (10:00)
[2021-11-14] MEDS ORDERED: VANCOMYCIN/WATER BAGS 1,250 MG/250 ML BAG IVPB SCH ×2 (10:00)
[2021-11-14] MEDS ORDERED: [UNRECOGNIZED DRUG - OTHER] IV SCH (10:00)
[2021-11-14] MEDS ORDERED: VANCOMYCIN HCL IV SCH (10:00)
[2021-11-14] MEDS ORDERED: ASPIRIN 81 MG CHEWABLE TABLETS ONE (10:30)
[2021-11-14] MEDS ORDERED: ASCORBIC ACID 500 MG TABLET (FP) ONE (10:30)
[2021-11-14] MEDS ORDERED: CLOPIDOGREL BISULFATE 75 MG TABLET (FP) ONE (10:31)
[2021-11-14] MEDS ORDERED: LIDOCAINE 5% TOPICAL PATCH ONE (10:31)
[2021-11-14] MEDS ORDERED: FAMOTIDINE 20 MG TABLET ONE (10:31)
[2021-11-14] MEDS ORDERED: CEFEPIME 2 GM/100 ML BAG IVPB ONE (10:32)
[2021-11-14] MEDS ORDERED: PT OWN MED DRAWER 7, Y5N ONE (10:32)
[2021-11-14] MEDS ORDERED: ENOXAPARIN NA (PORCINE) 30 MG/0.3 ML DISP.SYRIN SQ ONE (10:32)
[2021-11-14] MEDS: ESCITALOPRAM OXALATE 5 MG/5 ML PO SCH (10:36)
[2021-11-14] MEDS: CEFEPIME 2 GM in DEXTROSE 5%-WATER 100 ML IVPB SCH ×4 (10:36→22:53)
[2021-11-14] MEDS: ASPIRIN 81 MG CHEWABLE TABLETS PO SCH (10:36)
[2021-11-14] MEDS: ASCORBIC ACID 500 MG TABLET (FP) PO SCH (10:37)
[2021-11-14] MEDS: ENOXAPARIN NA (PORCINE) 30 MG/0.3 ML DISP.SYRIN SQ SCH (10:37)
[2021-11-14] MEDS: LIDOCAINE 5% TOPICAL PATCH TP SCH (10:37)
[2021-11-14] MEDS: CLOPIDOGREL BISULFATE 75 MG TABLET (FP) PO SCH (10:37)
[2021-11-14] MEDS: FAMOTIDINE 20 MG TABLET PO SCH (10:37)
[2021-11-14] MEDS: COLLAGENASE CLOSTRIDIUM HIST. 30 GRAMS TUBE TP SCH (10:37)
[2021-11-14] MEDS ORDERED: oxyCODONE HCL 5 MG TABLET PO SCH (11:56)
[2021-11-14] MEDS ORDERED: oxyCODONE HCL 5 MG TABLET PO STA ×2 (12:29→12:32)
[2021-11-14] MEDS ORDERED: traMADol HCL 50 MG TABLET ONE (12:49)
[2021-11-14] MEDS: traMADol HCL 50 MG TABLET PO PRN (12:54)
[2021-11-14] MEDS ORDERED: traZODone HCL 50 MG TABLET (FP) PO SCH (22:00)
[2021-11-14] MEDS: ATORVASTATIN CA 40 MG TABLET (FP) PO SCH (22:43)
[2021-11-14] MEDS: DOCUSATE SODIUM 100 MG CAPSULE (FP) PO SCH (22:44)
[2021-11-15] MEDS: traMADol HCL 50 MG TABLET PO PRN (01:39)
[2021-11-15] MEDS: LIDOCAINE PATCH REMOVAL MC SCH ×2 (01:41→21:53)
[2021-11-15] MEDS: GABAPENTIN 400 MG CAPSULE PO SCH ×3 (06:35→21:25)
[2021-11-15] MEDS ORDERED: PT OWN MED DRAWER 7, Y5N ONE ×2 (09:11→21:16)
[2021-11-15] MEDS: LORATADINE 10 MG TABLET PO SCH (09:31)
[2021-11-15] MEDS: ASPIRIN 81 MG CHEWABLE TABLETS PO SCH (09:31)
[2021-11-15] MEDS: ASCORBIC ACID 500 MG TABLET (FP) PO SCH (09:31)
[2021-11-15] MEDS: CLOPIDOGREL BISULFATE 75 MG TABLET (FP) PO SCH (09:31)
[2021-11-15] MEDS: LACTOBACILLUS ACIDOPHILUS 1 TABLET PO SCH (09:31)
[2021-11-15] MEDS: ESCITALOPRAM OXALATE 5 MG/5 ML PO SCH (09:31)
[2021-11-15] MEDS: LISINOPRIL 10 MG TABLET PO SCH (09:31)
[2021-11-15] MEDS: ENOXAPARIN NA (PORCINE) 30 MG/0.3 ML DISP.SYRIN SQ SCH (09:31)
[2021-11-15] MEDS: FAMOTIDINE 20 MG TABLET PO SCH (09:31)
[2021-11-15] MEDS: LIDOCAINE 5% TOPICAL PATCH TP SCH (09:32)
[2021-11-15] MEDS: VANCOMYCIN/WATER BAGS 1,250 MG/250 ML BAG IVPB SCH (09:33)
[2021-11-15] MEDS ORDERED: traZODone HCL 50 MG TABLET (FP) PO SCH (09:51)
[2021-11-15] MEDS: CEFEPIME 2 GM in DEXTROSE 5%-WATER 100 ML IVPB SCH ×2 (10:57→21:24)
[2021-11-15] MEDS: FLUTICASONE PROP 0.05% 16 GM NASAL SPRAY NS SCH (11:14)
[2021-11-15] MEDS: COLLAGENASE CLOSTRIDIUM HIST. 30 GRAMS TUBE TP SCH (11:14)
[2021-11-15 12:08] LABS: HEMATOCRIT 34.4 % (32.4-45.2); HEMOGLOBIN 10.7 GM/dL (10.7-15.3); MCH 27.9 pg (25.7-33.7); MCHC 31.3 g/dl (32.0-36.0); MEAN CELL VOLUME 89.3 fl (80-96); MEAN PLT VOLUME 8.6 fl (7.5-11.1); PLATELET COUNT 313 10^3/uL (134-434); RBC 3.85 M/mm3 (3.60-5.2); RDW 16.8 % (11.6-15.6); WHITE BLOOD COUNT 28.2 K/mm3 (4.0-10.0)
[2021-11-15 12:32] LABS: ANISOCYTOSIS 1+; MACROCYTOSIS 1+; PLATELET ESTIMATE NORMAL
[2021-11-15 12:43] LABS: CALCIUM 9.1 mg/dL (8.5-10.1)
[2021-11-15 12:44] LABS: ALBUMIN 2.3 g/dl (3.4-5.0); BLOOD UREA NITROGEN 25.9 mg/dL (7-18); MAGNESIUM 2.4 mg/dL (1.8-2.4)
[2021-11-15 12:47] LABS: CREATININE 0.9 mg/dL (0.55-1.3)
[2021-11-15 12:49] LABS: BILIRUBIN,TOTAL 0.4 mg/dL (0.2-1)
[2021-11-15] MEDS: ATORVASTATIN CA 40 MG TABLET (FP) PO SCH (21:26)
[2021-11-15] MEDS: DOCUSATE SODIUM 100 MG CAPSULE (FP) PO SCH (21:27)
[2021-11-16] MEDS: GABAPENTIN 400 MG CAPSULE PO SCH (06:14)
[2021-11-16 08:57] LABS: BASO % 0.2 % (0-2.0); EOS % 0.2 % (0-4.5); HEMATOCRIT 26.6 % (32.4-45.2); HEMOGLOBIN 8.6 GM/dL (10.7-15.3); LYMPH % 6.1 % (8-40); MCH 28.6 pg (25.7-33.7); MCHC 32.2 g/dl (32.0-36.0); MEAN CELL VOLUME 88.6 fl (80-96); MEAN PLT VOLUME 8.6 fl (7.5-11.1); MONO % 11.6 % (3.8-10.2); NEUT % 81.9 % (42.8-82.8); PLATELET COUNT 251 10^3/uL (134-434); RDW 16.4 % (11.6-15.6); WHITE BLOOD COUNT 17.2 K/mm3 (4.0-10.0)
[2021-11-16 09:11] LABS: CALCIUM 8.3 mg/dL (8.5-10.1)
[2021-11-16 09:12] LABS: BLOOD UREA NITROGEN 36.3 mg/dL (7-18); MAGNESIUM 2.5 mg/dL (1.8-2.4)
[2021-11-16 09:16] LABS: BILIRUBIN,TOTAL 0.3 mg/dL (0.2-1)
[2021-11-16 09:17] LABS: TOT PROT 5.6 g/dl (6.4-8.2)
[2021-11-16 09:22] LABS: ALBUMIN 1.7 g/dl (3.4-5.0)
[2021-11-16] MEDS ORDERED: GABAPENTIN 400 MG CAPSULE PO SCH (09:30)
[2021-11-16] MEDS ORDERED: PT OWN MED DRAWER 7, Y5N ONE ×2 (09:30→11:18)
[2021-11-16] MEDS ORDERED: traMADol HCL 50 MG TABLET PO PRN ×3 (09:31→21:37)
[2021-11-16] MEDS: ESCITALOPRAM OXALATE 5 MG/5 ML PO SCH (09:33)
[2021-11-16] MEDS: FAMOTIDINE 20 MG TABLET PO SCH (09:33)
[2021-11-16] MEDS ORDERED: GABAPENTIN 100 MG CAPSULE PO SCH (09:33)
[2021-11-16] MEDS: LORATADINE 10 MG TABLET PO SCH (09:33)
[2021-11-16] MEDS: LACTOBACILLUS ACIDOPHILUS 1 TABLET PO SCH (09:33)
[2021-11-16] MEDS: LISINOPRIL 10 MG TABLET PO SCH (09:35)
[2021-11-16] MEDS: ASCORBIC ACID 500 MG TABLET (FP) PO SCH (09:35)
[2021-11-16] MEDS: FLUTICASONE PROP 0.05% 16 GM NASAL SPRAY NS SCH (09:36)
[2021-11-16] MEDS ORDERED: ACETAMINOPHEN 325 MG TABLET (FP) PO PRN (09:41)
[2021-11-16] MEDS: CEFEPIME 2 GM in DEXTROSE 5%-WATER 100 ML IVPB SCH ×2 (09:42→23:20)
[2021-11-16] MEDS ORDERED: SODIUM CHLORIDE 1,000 ML IV SCH ×2 (09:45→18:15)
[2021-11-16] MEDS: VANCOMYCIN/WATER BAGS 1,250 MG/250 ML BAG IVPB SCH (11:26)
[2021-11-16] MEDS: COLLAGENASE CLOSTRIDIUM HIST. 30 GRAMS TUBE TP SCH (11:28)
[2021-11-16] MEDS: LIDOCAINE 5% TOPICAL PATCH TP SCH (11:42)
[2021-11-16] MEDS ORDERED: NYSTATIN POWDER 100,000 UNITS/GM - 15 GM TOPICAL POWDER TP SCH (14:00)
[2021-11-16] MEDS ORDERED: ceFAZolin SODIUM 1 GM VIAL IVPB ONE (17:28)
[2021-11-16] MEDS ORDERED: LIDOCAINE HCL 1%, 10 MG/ML (20ML VIAL) NR ONE ×2 (17:28→18:32)
[2021-11-16] MEDS ORDERED: MIDAZOLAM HCL 2 MG/2 ML SINGLE DOSE VIAL ONE ×3 (17:44→20:20)
[2021-11-16] MEDS ORDERED: ONDANSETRON 4 MG/2 ML VIAL IVPUSH PRN ×2 (18:03→21:37)
[2021-11-16] MEDS ORDERED: IOHEXOL 300 MG/ML INFUS..BTL IV ONE (19:27)
[2021-11-16] MEDS ORDERED: HEPARIN NA (PORCINE) 5,000 UNITS/ML 1ML VIAL ONE (20:13)
[2021-11-16] MEDS ORDERED: HEPARIN NA (PORCINE) 5,000 UNITS/ML 1ML VIAL IVPUSH PRN ×3 (21:20→21:21)
[2021-11-16] MEDS ORDERED: HEPARIN INFUSION - 25,000 UNITS/500 ML INFUS.BAG IVPB ONE (21:23)
[2021-11-16] MEDS ORDERED: HEPARIN NA (PORCINE) 5,000 UNITS/ML 1ML VIAL IVPUSH ONE (21:30)
[2021-11-16] MEDS ORDERED: ALBUTEROL SO4 HFA INHALER IH PRN (21:37)
[2021-11-16] MEDS ORDERED: SENNOSIDES 8.6MG TABLET (FP) PO PRN (21:37)
[2021-11-16] MEDS: HEPARIN SOD,PORK IN 0.45% NACL 25,000 UNITS/500 ML INFUS.BAG IVPB SCH (22:00)
[2021-11-16] MEDS: DOCUSATE SODIUM 100 MG CAPSULE (FP) PO SCH (23:19)
[2021-11-16] MEDS: LIDOCAINE PATCH REMOVAL MC SCH (23:19)
[2021-11-16] MEDS: ATORVASTATIN CA 40 MG TABLET (FP) PO SCH (23:19)
[2021-11-16] MEDS: GABAPENTIN 100 MG CAPSULE PO SCH (23:20)
[2021-11-16] MEDS: NYSTATIN POWDER 100,000 UNITS/GM - 15 GM TOPICAL POWDER TP SCH (23:20)
[2021-11-17] MEDS: GABAPENTIN 100 MG CAPSULE PO SCH ×3 (06:00→21:30)
[2021-11-17] MEDS: ACETAMINOPHEN 325 MG TABLET (FP) PO PRN (06:00)
[2021-11-17] MEDS: NYSTATIN POWDER 100,000 UNITS/GM - 15 GM TOPICAL POWDER TP SCH ×3 (06:42→21:38)
[2021-11-17] MEDS ORDERED: PT OWN MED DRAWER 7, Y5N ONE ×4 (08:29→20:45)
[2021-11-17 08:51] LABS: BASO % 0.2 % (0-2.0); EOS % 1.8 % (0-4.5); HEMATOCRIT 22.4 % (32.4-45.2); LYMPH % 6.3 % (8-40); MCH 27.8 pg (25.7-33.7); MCHC 31.3 g/dl (32.0-36.0); MEAN CELL VOLUME 88.8 fl (80-96); MEAN PLT VOLUME 8.3 fl (7.5-11.1); MONO % 7.7 % (3.8-10.2); PLATELET COUNT 268 10^3/uL (134-434); RBC 2.52 M/mm3 (3.60-5.2); RDW 17.2 % (11.6-15.6); WHITE BLOOD COUNT 16.2 K/mm3 (4.0-10.0)
[2021-11-17] MEDS: CEFEPIME 2 GM in DEXTROSE 5%-WATER 100 ML IVPB SCH ×2 (09:44→21:30)
[2021-11-17] MEDS: VANCOMYCIN/WATER BAGS 1,250 MG/250 ML BAG IVPB SCH (09:44)
[2021-11-17] MEDS: LACTOBACILLUS ACIDOPHILUS 1 TABLET PO SCH (09:45)
[2021-11-17] MEDS: FAMOTIDINE 20 MG TABLET PO SCH (09:45)
[2021-11-17] MEDS: LORATADINE 10 MG TABLET PO SCH (09:45)
[2021-11-17] MEDS: ASPIRIN 81 MG CHEWABLE TABLETS PO SCH (09:45)
[2021-11-17] MEDS: ASCORBIC ACID 500 MG TABLET (FP) PO SCH (09:45)
[2021-11-17] MEDS: LISINOPRIL 10 MG TABLET PO SCH (09:45)
[2021-11-17] MEDS: FLUTICASONE PROP 0.05% 16 GM NASAL SPRAY NS SCH (09:47)
[2021-11-17] MEDS: LIDOCAINE 5% TOPICAL PATCH TP SCH (09:48)
[2021-11-17 10:00] LABS: ALBUMIN 1.6 g/dl (3.4-5.0); BILIRUBIN,TOTAL 0.3 mg/dL (0.2-1); BLOOD UREA NITROGEN 38.2 mg/dL (7-18); CALCIUM 8.2 mg/dL (8.5-10.1); CREATININE 0.9 mg/dL (0.55-1.3); MAGNESIUM 2.3 mg/dL (1.8-2.4); TOT PROT 5.9 g/dl (6.4-8.2)
[2021-11-17] MEDS ORDERED: COLLAGENASE CLOSTRIDIUM HIST. 30 GRAMS TUBE TP SCH (10:00)
[2021-11-17] MEDS: SODIUM CHLORIDE 1,000 ML IV SCH ×2 (10:02→21:41)
[2021-11-17] MEDS: ESCITALOPRAM OXALATE 5 MG/5 ML PO SCH (11:16)
[2021-11-17] MEDS: COLLAGENASE CLOSTRIDIUM HIST. 30 GRAMS TUBE TP SCH (17:39)
[2021-11-17 18:49] LABS: INR 1.78 (0.83-1.09); PROTHROMBIN TIME (PATIENT) 20.1 SEC (9.7-13.0)
[2021-11-17] MEDS: WARFARIN NA 5 MG TABLET PO SCH (19:11)
[2021-11-17] MEDS: HEPARIN SOD,PORK IN 0.45% NACL 25,000 UNITS/500 ML INFUS.BAG IVPB SCH ×2 (19:48→21:35)
[2021-11-17] MEDS: ATORVASTATIN CA 40 MG TABLET (FP) PO SCH (21:30)
[2021-11-17] MEDS: DOCUSATE SODIUM 100 MG CAPSULE (FP) PO SCH (21:37)
[2021-11-17] MEDS: LIDOCAINE PATCH REMOVAL MC SCH (21:38)
[2021-11-18] MEDS: GABAPENTIN 100 MG CAPSULE PO SCH ×3 (05:13→21:23)
[2021-11-18] MEDS: NYSTATIN POWDER 100,000 UNITS/GM - 15 GM TOPICAL POWDER TP SCH ×3 (05:13→21:25)
[2021-11-18 08:59] LABS: HEMATOCRIT 20.4 % (32.4-45.2); MCH 28.3 pg (25.7-33.7); MCHC 31.4 g/dl (32.0-36.0); MEAN CELL VOLUME 90.2 fl (80-96); MEAN PLT VOLUME 8.4 fl (7.5-11.1); PLATELET COUNT 272 10^3/uL (134-434); RBC 2.26 M/mm3 (3.60-5.2); RDW 17.1 % (11.6-15.6); WHITE BLOOD COUNT 14.8 K/mm3 (4.0-10.0)
[2021-11-18 09:05] LABS: HEMOGLOBIN 6.4 GM/dL (10.7-15.3)
[2021-11-18] MEDS: HEPARIN SOD,PORK IN 0.45% NACL 25,000 UNITS/500 ML INFUS.BAG IVPB SCH ×2 (09:46→17:06)
[2021-11-18] MEDS ORDERED: PT OWN MED DRAWER 7, Y5N ONE ×3 (11:07→21:20)
[2021-11-18] MEDS: CEFEPIME 2 GM in DEXTROSE 5%-WATER 100 ML IVPB SCH ×2 (11:26→21:24)
[2021-11-18] MEDS: LACTOBACILLUS ACIDOPHILUS 1 TABLET PO SCH (11:30)
[2021-11-18] MEDS: LISINOPRIL 10 MG TABLET PO SCH (11:30)
[2021-11-18] MEDS: ASCORBIC ACID 500 MG TABLET (FP) PO SCH (11:30)
[2021-11-18] MEDS: LORATADINE 10 MG TABLET PO SCH (11:30)
[2021-11-18] MEDS: FAMOTIDINE 20 MG TABLET PO SCH (11:30)
[2021-11-18] MEDS: ASPIRIN 81 MG CHEWABLE TABLETS PO SCH (11:30)
[2021-11-18] MEDS: VANCOMYCIN/WATER BAGS 1,250 MG/250 ML BAG IVPB SCH (11:31)
[2021-11-18] MEDS: LIDOCAINE 5% TOPICAL PATCH TP SCH (11:37)
[2021-11-18] MEDS: COLLAGENASE CLOSTRIDIUM HIST. 30 GRAMS TUBE TP SCH (11:38)
[2021-11-18] MEDS: FLUTICASONE PROP 0.05% 16 GM NASAL SPRAY NS SCH (11:38)
[2021-11-18] MEDS: ESCITALOPRAM OXALATE 5 MG/5 ML PO SCH (11:48)
[2021-11-18 14:43] LABS: INR 1.84 (0.83-1.09); PROTHROMBIN TIME (PATIENT) 21.7 SEC (9.7-13.0)
[2021-11-18 16:57] LABS: INR 3.16 (0.83-1.09); PROTHROMBIN TIME (PATIENT) 37.4 SEC (9.7-13.0)
[2021-11-18] MEDS: WARFARIN NA 5 MG TABLET PO SCH (17:27)
[2021-11-18 18:59] LABS: EPI CELLS 16 /uL (0-25.1); HYALINE CASTS 5 /uL (0-3.1); URINE APPEARANCE TURBID; URINE BACTERIA 12 /uL (0-1359); URINE BILIRUBIN NEGATIVE (NEGATIVE); URINE COLOR ORANGE; URINE GLUCOSE (UA) NEGATIVE (NEGATIVE); URINE KETONE NEGATIVE (NEGATIVE); URINE LEUK ESTERASE 2+ (NEGATIVE); URINE NITRITE NEGATIVE (NEGATIVE); URINE PROTEIN 2+ (NEGATIVE); URINE RBC 3684 /uL (0-23.9); URINE UROBILINOGEN 0.2 mg/dL (0.2-1.0); URINE WBC 597 /uL (0-25.8)
[2021-11-18] MEDS: ATORVASTATIN CA 40 MG TABLET (FP) PO SCH (21:24)
[2021-11-18] MEDS: DOCUSATE SODIUM 100 MG CAPSULE (FP) PO SCH (21:24)
[2021-11-18] MEDS: SODIUM CHLORIDE 1,000 ML IV SCH (21:24)
[2021-11-18] MEDS: LIDOCAINE PATCH REMOVAL MC SCH (21:25)
[2021-11-19] MEDS: NYSTATIN POWDER 100,000 UNITS/GM - 15 GM TOPICAL POWDER TP SCH ×3 (05:59→23:01)
[2021-11-19] MEDS: GABAPENTIN 100 MG CAPSULE PO SCH ×3 (05:59→23:01)
[2021-11-19] MEDS ORDERED: PT OWN MED DRAWER 7, Y5N ONE ×3 (09:23→22:55)
[2021-11-19] MEDS: LACTOBACILLUS ACIDOPHILUS 1 TABLET PO SCH (09:30)
[2021-11-19] MEDS: FAMOTIDINE 20 MG TABLET PO SCH (09:30)
[2021-11-19] MEDS: ASPIRIN 81 MG CHEWABLE TABLETS PO SCH (09:31)
[2021-11-19] MEDS: COLLAGENASE CLOSTRIDIUM HIST. 30 GRAMS TUBE TP SCH (09:31)
[2021-11-19] MEDS: ASCORBIC ACID 500 MG TABLET (FP) PO SCH (09:31)
[2021-11-19] MEDS: ESCITALOPRAM OXALATE 5 MG/5 ML PO SCH (09:31)
[2021-11-19] MEDS: LIDOCAINE 5% TOPICAL PATCH TP SCH (09:32)
[2021-11-19] MEDS: CEFEPIME 2 GM in DEXTROSE 5%-WATER 100 ML IVPB SCH ×2 (09:32→23:00)
[2021-11-19] MEDS: FLUTICASONE PROP 0.05% 16 GM NASAL SPRAY NS SCH (09:32)
[2021-11-19] MEDS: LORATADINE 10 MG TABLET PO SCH (09:33)
[2021-11-19] MEDS: LISINOPRIL 10 MG TABLET PO SCH (09:33)
[2021-11-19] MEDS: VANCOMYCIN/WATER BAGS 1,250 MG/250 ML BAG IVPB SCH (10:32)
[2021-11-19 12:13] LABS: HEMATOCRIT 22.5 % (32.4-45.2); HEMOGLOBIN 7.4 GM/dL (10.7-15.3); MCH 29.8 pg (25.7-33.7); MEAN CELL VOLUME 90.6 fl (80-96); MEAN PLT VOLUME 8.1 fl (7.5-11.1); PLATELET COUNT 282 10^3/uL (134-434); RBC 2.48 M/mm3 (3.60-5.2); RDW 15.8 % (11.6-15.6); WHITE BLOOD COUNT 15.4 K/mm3 (4.0-10.0)
[2021-11-19] MEDS: SODIUM CHLORIDE 1,000 ML IV SCH (23:00)
[2021-11-19] MEDS: LIDOCAINE PATCH REMOVAL MC SCH (23:01)
[2021-11-19] MEDS: DOCUSATE SODIUM 100 MG CAPSULE (FP) PO SCH (23:01)
[2021-11-19] MEDS: ATORVASTATIN CA 40 MG TABLET (FP) PO SCH (23:01)
[2021-11-19] MEDS: ACETAMINOPHEN 325 MG TABLET (FP) PO PRN (23:03)
[2021-11-20] MEDS: NYSTATIN POWDER 100,000 UNITS/GM - 15 GM TOPICAL POWDER TP SCH ×3 (06:37→21:52)
[2021-11-20] MEDS: GABAPENTIN 100 MG CAPSULE PO SCH ×3 (06:37→21:44)
[2021-11-20 08:33] LABS: HEMATOCRIT 22.6 % (32.4-45.2); HEMOGLOBIN 7.5 GM/dL (10.7-15.3); MCH 29.6 pg (25.7-33.7); MCHC 33.3 g/dl (32.0-36.0); MEAN PLT VOLUME 7.7 fl (7.5-11.1); PLATELET COUNT 309 10^3/uL (134-434); RBC 2.53 M/mm3 (3.60-5.2); RDW 16.5 % (11.6-15.6); WHITE BLOOD COUNT 15.2 K/mm3 (4.0-10.0)
[2021-11-20 08:54] LABS: CHLORIDE 124 mmol/L (98-107); SODIUM 148 mmol/L (136-145)
[2021-11-20 09:01] LABS: BLOOD UREA NITROGEN 26.6 mg/dL (7-18); CALCIUM 8.1 mg/dL (8.5-10.1); CO2 15 mmol/L (21-32); GLUCOSE,RANDOM 86 mg/dL (74-106)
[2021-11-20 09:17] LABS: ANION GAP 10 MMOL/L (8-16)
[2021-11-20] MEDS ORDERED: POTASSIUM CHLORIDE ORAL LIQUID 20 MEQ/15 ML PO ONE ×2 (10:00→19:53)
[2021-11-20] MEDS ORDERED: PT OWN MED DRAWER 7, Y5N ONE ×2 (10:05→11:14)
[2021-11-20] MEDS: LISINOPRIL 10 MG TABLET PO SCH (10:14)
[2021-11-20] MEDS: LORATADINE 10 MG TABLET PO SCH (10:14)
[2021-11-20] MEDS: LIDOCAINE 5% TOPICAL PATCH TP SCH (10:14)
[2021-11-20] MEDS: ESCITALOPRAM OXALATE 5 MG/5 ML PO SCH (10:14)
[2021-11-20] MEDS: ASPIRIN 81 MG CHEWABLE TABLETS PO SCH (10:14)
[2021-11-20] MEDS: LACTOBACILLUS ACIDOPHILUS 1 TABLET PO SCH (10:14)
[2021-11-20] MEDS: COLLAGENASE CLOSTRIDIUM HIST. 30 GRAMS TUBE TP SCH (10:15)
[2021-11-20] MEDS: FAMOTIDINE 20 MG TABLET PO SCH (10:15)
[2021-11-20] MEDS: ASCORBIC ACID 500 MG TABLET (FP) PO SCH (10:15)
[2021-11-20] MEDS: FLUTICASONE PROP 0.05% 16 GM NASAL SPRAY NS SCH (10:43)
[2021-11-20 11:08] LABS: VENOUS BASE EXCESS -10.2 mmol/L (-2-2); VENOUS O2 SATURATION 83.8 % (70-80); VENOUS PCO2 35.3 mmHg (38-52); VENOUS PH 7.27 (7.310-7.410)
[2021-11-20 11:11] LABS: CHLORIDE 123 mmol/L (98-107); SODIUM 148 mmol/L (136-145)
[2021-11-20 11:14] LABS: INR 3.03 (0.83-1.09); PROTHROMBIN TIME (PATIENT) 35.9 SEC (9.7-13.0)
[2021-11-20 11:15] LABS: CALCIUM 8.2 mg/dL (8.5-10.1)
[2021-11-20 11:16] LABS: ALBUMIN 1.5 g/dl (3.4-5.0); BLOOD UREA NITROGEN 25.5 mg/dL (7-18); CO2 18 mmol/L (21-32); GLUCOSE,RANDOM 110 mg/dL (74-106)
[2021-11-20 11:19] LABS: SGOT/AST 62 U/L (15-37); SGPT/ALT 32 U/L (13-61)
[2021-11-20 11:21] LABS: BILIRUBIN,TOTAL 0.4 mg/dL (0.2-1); TOT PROT 5.4 g/dl (6.4-8.2)
[2021-11-20 11:22] LABS: ALK PHOS 79 U/L (45-117)
[2021-11-20 11:23] LABS: ANION GAP 7 MMOL/L (8-16)
[2021-11-20] MEDS: VANCOMYCIN/WATER BAGS 1,250 MG/250 ML BAG IVPB SCH (11:30)
[2021-11-20] MEDS: KCL 10 MEQ IVPB 10 MEQ/100 ML INFUS.BAG IVPB SCH ×5 (12:11→23:03)
[2021-11-20] MEDS: CEFEPIME 2 GM in DEXTROSE 5%-WATER 100 ML IVPB SCH ×2 (12:58→22:54)
[2021-11-20] MEDS: WARFARIN NA 5 MG TABLET PO SCH (18:09)
[2021-11-20 19:00] LABS: BLOOD UREA NITROGEN 25.8 mg/dL (7-18); CALCIUM 8.1 mg/dL (8.5-10.1)
[2021-11-20] MEDS: ATORVASTATIN CA 40 MG TABLET (FP) PO SCH (21:45)
[2021-11-20] MEDS: DOCUSATE SODIUM 100 MG CAPSULE (FP) PO SCH (21:51)
[2021-11-20] MEDS: LIDOCAINE PATCH REMOVAL MC SCH (21:51)
[2021-11-21] MEDS: KCL 10 MEQ IVPB 10 MEQ/100 ML INFUS.BAG IVPB SCH (00:49)
[2021-11-21] MEDS ORDERED: PT OWN MED DRAWER 7, Y5N ONE ×3 (01:58→20:11)
[2021-11-21] MEDS: GABAPENTIN 100 MG CAPSULE PO SCH ×4 (06:19→20:59)
[2021-11-21] MEDS: NYSTATIN POWDER 100,000 UNITS/GM - 15 GM TOPICAL POWDER TP SCH ×3 (06:29→21:40)
[2021-11-21] MEDS: ESCITALOPRAM OXALATE 10 MG TABLET PO SCH (10:01)
[2021-11-21] MEDS: LIDOCAINE 5% TOPICAL PATCH TP SCH (10:01)
[2021-11-21] MEDS: FAMOTIDINE 20 MG TABLET PO SCH (10:02)
[2021-11-21] MEDS: LORATADINE 10 MG TABLET PO SCH (10:02)
[2021-11-21] MEDS: ASCORBIC ACID 500 MG TABLET (FP) PO SCH (10:02)
[2021-11-21] MEDS: ASPIRIN 81 MG CHEWABLE TABLETS PO SCH (10:02)
[2021-11-21] MEDS: LACTOBACILLUS ACIDOPHILUS 1 TABLET PO SCH (10:02)
[2021-11-21] MEDS: LISINOPRIL 10 MG TABLET PO SCH (10:02)
[2021-11-21] MEDS: COLLAGENASE CLOSTRIDIUM HIST. 30 GRAMS TUBE TP SCH (10:03)
[2021-11-21] MEDS: CEFEPIME 2 GM in DEXTROSE 5%-WATER 100 ML IVPB SCH ×3 (10:03→20:53)
[2021-11-21] MEDS: FLUTICASONE PROP 0.05% 16 GM NASAL SPRAY NS SCH (10:03)
[2021-11-21] MEDS ORDERED: ALTEPLASE (CATHFLO) 2 MG/2 ML VIAL IVPUSH ONE (12:08)
[2021-11-21] MEDS: VANCOMYCIN/WATER BAGS 1,250 MG/250 ML BAG IVPB SCH (15:34)
[2021-11-21 16:29] LABS: HEMATOCRIT 27.4 % (32.4-45.2); MCH 28.3 pg (25.7-33.7); MCHC 32.7 g/dl (32.0-36.0); MEAN CELL VOLUME 86.5 fl (80-96); MEAN PLT VOLUME 7.9 fl (7.5-11.1); PLATELET COUNT 329 10^3/uL (134-434); RBC 3.17 M/mm3 (3.60-5.2); RDW 16.3 % (11.6-15.6); WHITE BLOOD COUNT 15.8 K/mm3 (4.0-10.0)
[2021-11-21 16:35] LABS: CALCIUM 8.7 mg/dL (8.5-10.1)
[2021-11-21 16:36] LABS: ALBUMIN 1.5 g/dl (3.4-5.0); BLOOD UREA NITROGEN 23.4 mg/dL (7-18)
[2021-11-21 16:39] LABS: CREATININE 1.1 mg/dL (0.55-1.3)
[2021-11-21 16:40] LABS: BILIRUBIN,TOTAL 0.3 mg/dL (0.2-1)
[2021-11-21 16:41] LABS: TOT PROT 6.1 g/dl (6.4-8.2)
[2021-11-21 17:54] LABS: ANISOCYTOSIS 2+; MACROCYTOSIS 0; OVALOCYTE 1+; PLATELET ESTIMATE NORMAL; TEAR DROP CELLS 1+
[2021-11-21] MEDS: AMINO ACIDS/PROTEIN HYDROLYS 30 ML LIQUID.PKT PO SCH (18:01)
[2021-11-21 18:10] LABS: INR 2.63 (0.83-1.09); PROTHROMBIN TIME (PATIENT) 29.7 SEC (9.7-13.0)
[2021-11-21] MEDS: WARFARIN NA 5 MG TABLET PO SCH (18:58)
[2021-11-21] MEDS: ATORVASTATIN CA 40 MG TABLET (FP) PO SCH (20:59)
[2021-11-21] MEDS: DOCUSATE SODIUM 100 MG CAPSULE (FP) PO SCH (21:39)
[2021-11-21] MEDS: LIDOCAINE PATCH REMOVAL MC SCH (21:40)
[2021-11-22] MEDS: GABAPENTIN 100 MG CAPSULE PO SCH ×3 (05:04→21:55)
[2021-11-22] MEDS: NYSTATIN POWDER 100,000 UNITS/GM - 15 GM TOPICAL POWDER TP SCH ×3 (05:06→21:57)
[2021-11-22 06:01] LABS: HEMATOCRIT 26.6 % (32.4-45.2); HEMOGLOBIN 8.9 GM/dL (10.7-15.3); MCHC 33.3 g/dl (32.0-36.0); MEAN CELL VOLUME 87.1 fl (80-96); MEAN PLT VOLUME 8.1 fl (7.5-11.1); PLATELET COUNT 338 10^3/uL (134-434); RBC 3.05 M/mm3 (3.60-5.2); RDW 16.5 % (11.6-15.6); WHITE BLOOD COUNT 14.9 K/mm3 (4.0-10.0)
[2021-11-22 06:20] LABS: CALCIUM 8.4 mg/dL (8.5-10.1)
[2021-11-22 06:21] LABS: MAGNESIUM 1.9 mg/dL (1.8-2.4)
[2021-11-22 06:24] LABS: CREATININE 1.2 mg/dL (0.55-1.3)
[2021-11-22] MEDS ORDERED: PT OWN MED DRAWER 7, Y5N ONE ×2 (09:57→19:24)
[2021-11-22] MEDS ORDERED: ENOXAPARIN NA (PORCINE) 40 MG/0.4 ML DISP.SYRIN SQ SCH (10:00)
[2021-11-22] MEDS: CEFEPIME 2 GM in DEXTROSE 5%-WATER 100 ML IVPB SCH ×2 (10:17→20:24)
[2021-11-22] MEDS: ASCORBIC ACID 500 MG TABLET (FP) PO SCH (10:26)
[2021-11-22] MEDS: APIXABAN 5 MG TABLET PO SCH ×2 (10:26→21:55)
[2021-11-22] MEDS: MULTIVITAMINS (DAILY MVI) TABLET (FP) PO SCH (10:26)
[2021-11-22] MEDS: LORATADINE 10 MG TABLET PO SCH (10:26)
[2021-11-22] MEDS: ASPIRIN 81 MG CHEWABLE TABLETS PO SCH (10:26)
[2021-11-22] MEDS: LISINOPRIL 10 MG TABLET PO SCH (10:26)
[2021-11-22] MEDS: ESCITALOPRAM OXALATE 10 MG TABLET PO SCH (10:26)
[2021-11-22] MEDS: COLLAGENASE CLOSTRIDIUM HIST. 30 GRAMS TUBE TP SCH (10:27)
[2021-11-22] MEDS: AMINO ACIDS/PROTEIN HYDROLYS 30 ML LIQUID.PKT PO SCH ×2 (10:27→18:05)
[2021-11-22] MEDS: LIDOCAINE 5% TOPICAL PATCH TP SCH (10:27)
[2021-11-22] MEDS: FAMOTIDINE 20 MG TABLET PO SCH (10:27)
[2021-11-22] MEDS: LACTOBACILLUS ACIDOPHILUS 1 TABLET PO SCH (10:27)
[2021-11-22] MEDS: FLUTICASONE PROP 0.05% 16 GM NASAL SPRAY NS SCH (10:37)
[2021-11-22] MEDS: VANCOMYCIN/WATER BAGS 1,250 MG/250 ML BAG IVPB SCH (11:12)
[2021-11-22] MEDS ORDERED: POTASSIUM CHLORIDE TABS 20 MEQ TABLET.ER (FP) PO ONE (12:15)
[2021-11-22] MEDS: DEXTROSE 5%-WATER - 1,000 ML IV SCH (12:18)
[2021-11-22] MEDS: SODIUM BICARBONATE 650 MG TABLET PO SCH ×2 (12:24→21:56)
[2021-11-22] MEDS: KCL 10 MEQ IVPB 10 MEQ/100 ML INFUS.BAG IVPB SCH ×2 (12:59→14:42)
[2021-11-22] MEDS: ATORVASTATIN CA 40 MG TABLET (FP) PO SCH (21:55)
[2021-11-22] MEDS: DOCUSATE SODIUM 100 MG CAPSULE (FP) PO SCH (21:56)
[2021-11-22] MEDS: LIDOCAINE PATCH REMOVAL MC SCH (21:57)
[2021-11-23] MEDS: NYSTATIN POWDER 100,000 UNITS/GM - 15 GM TOPICAL POWDER TP SCH ×3 (06:06→21:18)
[2021-11-23] MEDS: GABAPENTIN 100 MG CAPSULE PO SCH ×2 (06:06→15:40)
[2021-11-23] MEDS ORDERED: PT OWN MED DRAWER 7, Y5N ONE ×2 (10:04→19:52)
[2021-11-23] MEDS: CEFEPIME 2 GM in DEXTROSE 5%-WATER 100 ML IVPB SCH ×2 (10:11→21:17)
[2021-11-23] MEDS: FAMOTIDINE 20 MG TABLET PO SCH (10:21)
[2021-11-23] MEDS: APIXABAN 5 MG TABLET PO SCH ×2 (10:21→21:16)
[2021-11-23] MEDS: ASCORBIC ACID 500 MG TABLET (FP) PO SCH (10:21)
[2021-11-23] MEDS: LACTOBACILLUS ACIDOPHILUS 1 TABLET PO SCH (10:21)
[2021-11-23] MEDS: ASPIRIN 81 MG CHEWABLE TABLETS PO SCH (10:22)
[2021-11-23] MEDS: LORATADINE 10 MG TABLET PO SCH (10:22)
[2021-11-23] MEDS: ESCITALOPRAM OXALATE 10 MG TABLET PO SCH (10:22)
[2021-11-23] MEDS: LIDOCAINE 5% TOPICAL PATCH TP SCH (10:23)
[2021-11-23] MEDS: FLUTICASONE PROP 0.05% 16 GM NASAL SPRAY NS SCH (10:23)
[2021-11-23] MEDS: LISINOPRIL 10 MG TABLET PO SCH (10:23)
[2021-11-23] MEDS: AMINO ACIDS/PROTEIN HYDROLYS 30 ML LIQUID.PKT PO SCH ×2 (10:23→19:06)
[2021-11-23] MEDS: MULTIVITAMINS (DAILY MVI) TABLET (FP) PO SCH (10:24)
[2021-11-23] MEDS: COLLAGENASE CLOSTRIDIUM HIST. 30 GRAMS TUBE TP SCH (10:24)
[2021-11-23] MEDS: DEXTROSE 5%-WATER - 1,000 ML IV SCH (10:25)
[2021-11-23] MEDS: VANCOMYCIN/WATER BAGS 1,250 MG/250 ML BAG IVPB SCH (10:49)
[2021-11-23 13:14] LABS: CHLORIDE 122 mmol/L (98-107); SODIUM 145 mmol/L (136-145)
[2021-11-23 13:17] LABS: ALBUMIN 1.5 g/dl (3.4-5.0); ANION GAP 7 MMOL/L (8-16); BLOOD UREA NITROGEN 26.6 mg/dL (7-18); CALCIUM 8.5 mg/dL (8.5-10.1); CO2 15 mmol/L (21-32); GLUCOSE,RANDOM 128 mg/dL (74-106); MAGNESIUM 1.8 mg/dL (1.8-2.4)
[2021-11-23 13:20] LABS: CREATININE 1.2 mg/dL (0.55-1.3); SGOT/AST 29 U/L (15-37); SGPT/ALT 31 U/L (13-61)
[2021-11-23 13:22] LABS: BILIRUBIN,TOTAL 0.4 mg/dL (0.2-1); TOT PROT 5.6 g/dl (6.4-8.2)
[2021-11-23 13:23] LABS: ALK PHOS 67 U/L (45-117)
[2021-11-23 13:25] LABS: PHOSPHOROUS 0.9 mg/dL (2.5-4.9)
[2021-11-23] MEDS ORDERED: KCL 10 MEQ IVPB 10 MEQ/100 ML INFUS.BAG IVPB SCH (13:45)
[2021-11-23] MEDS ORDERED: POTASSIUM PHOSPHATE 30 MM in DEXTROSE 5%-WATER - 500 ML IVPB ONE (15:00)
[2021-11-23] MEDS: ATORVASTATIN CA 40 MG TABLET (FP) PO SCH (21:16)
[2021-11-23] MEDS: DOCUSATE SODIUM 100 MG CAPSULE (FP) PO SCH (21:17)
[2021-11-23] MEDS: LIDOCAINE PATCH REMOVAL MC SCH (21:17)
[2021-11-24] MEDS: NYSTATIN POWDER 100,000 UNITS/GM - 15 GM TOPICAL POWDER TP SCH ×3 (07:11→21:21)
[2021-11-24 10:31] LABS: HEMATOCRIT 28.4 % (32.4-45.2); HEMOGLOBIN 9.3 GM/dL (10.7-15.3); MCH 28.4 pg (25.7-33.7); MEAN CELL VOLUME 86.3 fl (80-96); PLATELET COUNT 377 10^3/uL (134-434); RBC 3.29 M/mm3 (3.60-5.2); RDW 17.3 % (11.6-15.6); WHITE BLOOD COUNT 16.9 K/mm3 (4.0-10.0)
[2021-11-24 10:36] LABS: ADD RBC MORPHOLOGY YES
[2021-11-24] MEDS: LACTOBACILLUS ACIDOPHILUS 1 TABLET PO SCH (10:44)
[2021-11-24] MEDS: AMINO ACIDS/PROTEIN HYDROLYS 30 ML LIQUID.PKT PO SCH ×2 (10:44→17:00)
[2021-11-24] MEDS: LISINOPRIL 10 MG TABLET PO SCH (10:44)
[2021-11-24] MEDS: ASPIRIN 81 MG CHEWABLE TABLETS PO SCH (10:44)
[2021-11-24] MEDS: ASCORBIC ACID 500 MG TABLET (FP) PO SCH (10:44)
[2021-11-24] MEDS: MULTIVITAMINS (DAILY MVI) TABLET (FP) PO SCH (10:44)
[2021-11-24] MEDS: LORATADINE 10 MG TABLET PO SCH (10:44)
[2021-11-24] MEDS: FAMOTIDINE 20 MG TABLET PO SCH (10:44)
[2021-11-24] MEDS: APIXABAN 5 MG TABLET PO SCH ×2 (10:44→21:20)
[2021-11-24] MEDS: ESCITALOPRAM OXALATE 10 MG TABLET PO SCH (10:44)
[2021-11-24] MEDS: FLUTICASONE PROP 0.05% 16 GM NASAL SPRAY NS SCH (10:49)
[2021-11-24] MEDS ORDERED: PT OWN MED DRAWER 7, Y5N ONE ×2 (10:56→21:15)
[2021-11-24 11:00] LABS: CALCIUM 8.2 mg/dL (8.5-10.1)
[2021-11-24 11:01] LABS: MAGNESIUM 1.8 mg/dL (1.8-2.4)
[2021-11-24 11:02] LABS: ALBUMIN 1.7 g/dl (3.4-5.0)
[2021-11-24] MEDS: CEFEPIME 2 GM in DEXTROSE 5%-WATER 100 ML IVPB SCH ×2 (11:02→21:21)
[2021-11-24 11:04] LABS: CREATININE 1.3 mg/dL (0.55-1.3)
[2021-11-24 11:05] LABS: BILIRUBIN,TOTAL 0.5 mg/dL (0.2-1); TOT PROT 5.9 g/dl (6.4-8.2)
[2021-11-24] MEDS: DEXTROSE 5%-WATER - 1,000 ML IV SCH ×2 (11:05→14:17)
[2021-11-24] MEDS: COLLAGENASE CLOSTRIDIUM HIST. 30 GRAMS TUBE TP SCH (11:16)
[2021-11-24] MEDS: LIDOCAINE 5% TOPICAL PATCH TP SCH (11:33)
[2021-11-24] MEDS ORDERED: POTASSIUM CHLORIDE TABS 20 MEQ TABLET.ER (FP) PO ONE (12:00)
[2021-11-24] MEDS: KCL 10 MEQ IVPB 10 MEQ/100 ML INFUS.BAG IVPB SCH ×3 (12:14→15:25)
[2021-11-24 12:39] LABS: ANISOCYTOSIS 1+; MACROCYTOSIS 1+; OVALOCYTE 1+; PLATELET ESTIMATE NORMAL
[2021-11-24 14:04] LABS: PHOSPHOROUS 2.4 mg/dL (2.5-4.9)
[2021-11-24] MEDS: DOCUSATE SODIUM 100 MG CAPSULE (FP) PO SCH (21:21)
[2021-11-24] MEDS: ATORVASTATIN CA 40 MG TABLET (FP) PO SCH (21:21)
[2021-11-24] MEDS: LIDOCAINE PATCH REMOVAL MC SCH (21:34)
[2021-11-24] MEDS: ACETAMINOPHEN 325 MG TABLET (FP) PO PRN (21:34)
[2021-11-25] MEDS: NYSTATIN POWDER 100,000 UNITS/GM - 15 GM TOPICAL POWDER TP SCH ×3 (05:40→23:11)
[2021-11-25 08:38] LABS: BASO % 0.3 % (0-2.0); EOS % 3.6 % (0-4.5); HEMATOCRIT 26.5 % (32.4-45.2); HEMOGLOBIN 8.9 GM/dL (10.7-15.3); LYMPH % 9.3 % (8-40); MCH 28.7 pg (25.7-33.7); MCHC 33.6 g/dl (32.0-36.0); MEAN CELL VOLUME 85.5 fl (80-96); MEAN PLT VOLUME 7.8 fl (7.5-11.1); MONO % 11.3 % (3.8-10.2); NEUT % 75.5 % (42.8-82.8); PLATELET COUNT 318 10^3/uL (134-434); RBC 3.09 M/mm3 (3.60-5.2); RDW 16.6 % (11.6-15.6); WHITE BLOOD COUNT 17.5 K/mm3 (4.0-10.0)
[2021-11-25 09:46] LABS: ANISOCYTOSIS 1+; MACROCYTOSIS 0; PLATELET ESTIMATE NORMAL
[2021-11-25] MEDS: AMINO ACIDS/PROTEIN HYDROLYS 30 ML LIQUID.PKT PO SCH ×2 (10:07→17:33)
[2021-11-25] MEDS: ASPIRIN 81 MG CHEWABLE TABLETS PO SCH (10:10)
[2021-11-25] MEDS: LISINOPRIL 10 MG TABLET PO SCH (10:10)
[2021-11-25] MEDS: LORATADINE 10 MG TABLET PO SCH (10:10)
[2021-11-25] MEDS: FAMOTIDINE 20 MG TABLET PO SCH (10:10)
[2021-11-25] MEDS: APIXABAN 5 MG TABLET PO SCH ×2 (10:10→22:18)
[2021-11-25] MEDS: ESCITALOPRAM OXALATE 10 MG TABLET PO SCH (10:10)
[2021-11-25] MEDS: MULTIVITAMINS (DAILY MVI) TABLET (FP) PO SCH (10:10)
[2021-11-25] MEDS: ASCORBIC ACID 500 MG TABLET (FP) PO SCH (10:11)
[2021-11-25] MEDS: LACTOBACILLUS ACIDOPHILUS 1 TABLET PO SCH (10:11)
[2021-11-25] MEDS: COLLAGENASE CLOSTRIDIUM HIST. 30 GRAMS TUBE TP SCH (10:12)
[2021-11-25] MEDS: FLUTICASONE PROP 0.05% 16 GM NASAL SPRAY NS SCH (10:12)
[2021-11-25] MEDS: LIDOCAINE 5% TOPICAL PATCH TP SCH (10:12)
[2021-11-25] MEDS: CEFEPIME 2 GM in DEXTROSE 5%-WATER 100 ML IVPB SCH (10:38)
[2021-11-25 11:43] LABS: ALBUMIN 1.5 g/dl (3.4-5.0); ANION GAP 10 MMOL/L (8-16); BILIRUBIN,TOTAL 0.4 mg/dL (0.2-1); BLOOD UREA NITROGEN 30.2 mg/dL (7-18); CALCIUM 7.9 mg/dL (8.5-10.1); CHLORIDE 118 mmol/L (98-107); CO2 14 mmol/L (21-32); CREATININE 1.3 mg/dL (0.55-1.3); GLUCOSE,RANDOM 122 mg/dL (74-106); MAGNESIUM 1.8 mg/dL (1.8-2.4); SGOT/AST 35 U/L (15-37); SGPT/ALT 33 U/L (13-61); SODIUM 142 mmol/L (136-145); TOT PROT 5.6 g/dl (6.4-8.2)
[2021-11-25 11:44] LABS: ALK PHOS 72 U/L (45-117)
[2021-11-25] MEDS: VANCOMYCIN 250 MG/5 ML ORAL SOLUTION PO SCH ×2 (13:37→17:33)
[2021-11-25] MEDS: KCL 10 MEQ IVPB 10 MEQ/100 ML INFUS.BAG IVPB SCH ×3 (13:37→17:32)
[2021-11-25] MEDS: DEXTROSE 5%-WATER - 1,000 ML IV SCH (13:42)
[2021-11-25] MEDS: LIDOCAINE PATCH REMOVAL MC SCH (22:18)
[2021-11-25] MEDS: ATORVASTATIN CA 40 MG TABLET (FP) PO SCH (22:18)
[2021-11-25] MEDS: DOCUSATE SODIUM 100 MG CAPSULE (FP) PO SCH (22:18)
[2021-11-26] MEDS: VANCOMYCIN 250 MG/5 ML ORAL SOLUTION PO SCH ×4 (02:05→18:11)
[2021-11-26] MEDS: DEXTROSE 5%-WATER - 1,000 ML IV SCH ×2 (02:14→13:42)
[2021-11-26] MEDS: NYSTATIN POWDER 100,000 UNITS/GM - 15 GM TOPICAL POWDER TP SCH ×3 (05:36→22:54)
[2021-11-26] MEDS: COLLAGENASE CLOSTRIDIUM HIST. 30 GRAMS TUBE TP SCH ×3 (06:21→19:06)
[2021-11-26 09:21] LABS: BASO % 0.4 % (0-2.0); EOS % 3.6 % (0-4.5); HEMATOCRIT 27.1 % (32.4-45.2); LYMPH % 8.1 % (8-40); MCH 28.5 pg (25.7-33.7); MCHC 33.4 g/dl (32.0-36.0); MEAN CELL VOLUME 85.3 fl (80-96); MEAN PLT VOLUME 8.7 fl (7.5-11.1); MONO % 9.2 % (3.8-10.2); NEUT % 78.7 % (42.8-82.8); PLATELET COUNT 342 10^3/uL (134-434); RBC 3.17 M/mm3 (3.60-5.2); RDW 16.7 % (11.6-15.6); WHITE BLOOD COUNT 17.4 K/mm3 (4.0-10.0)
[2021-11-26 09:48] LABS: BLOOD UREA NITROGEN 30.4 mg/dL (7-18)
[2021-11-26 09:50] LABS: CALCIUM 8.2 mg/dL (8.5-10.1); MAGNESIUM 1.8 mg/dL (1.8-2.4)
[2021-11-26 09:51] LABS: ALBUMIN 1.7 g/dl (3.4-5.0)
[2021-11-26 09:54] LABS: BILIRUBIN,TOTAL 0.6 mg/dL (0.2-1); TOT PROT 5.9 g/dl (6.4-8.2)
[2021-11-26 09:56] LABS: CREATININE 1.2 mg/dL (0.55-1.3)
[2021-11-26 11:07] LABS: ANISOCYTOSIS 1+; MACROCYTOSIS 0; PLATELET ESTIMATE NORMAL
[2021-11-26] MEDS ORDERED: PT OWN MED DRAWER 7, Y5N ONE ×3 (12:16→23:08)
[2021-11-26] MEDS: LIDOCAINE 5% TOPICAL PATCH TP SCH (12:22)
[2021-11-26] MEDS: AMINO ACIDS/PROTEIN HYDROLYS 30 ML LIQUID.PKT PO SCH ×2 (12:22→18:09)
[2021-11-26] MEDS: FAMOTIDINE 20 MG TABLET PO SCH (12:23)
[2021-11-26] MEDS: APIXABAN 5 MG TABLET PO SCH ×2 (12:23→22:53)
[2021-11-26] MEDS: MULTIVITAMINS (DAILY MVI) TABLET (FP) PO SCH (12:23)
[2021-11-26] MEDS: LISINOPRIL 10 MG TABLET PO SCH (12:23)
[2021-11-26] MEDS: LORATADINE 10 MG TABLET PO SCH (12:24)
[2021-11-26] MEDS: ESCITALOPRAM OXALATE 10 MG TABLET PO SCH (12:24)
[2021-11-26] MEDS: LACTOBACILLUS ACIDOPHILUS 1 TABLET PO SCH (12:24)
[2021-11-26] MEDS: POTASSIUM CHLORIDE ORAL LIQUID 20 MEQ/15 ML PO SCH ×2 (12:25→22:55)
[2021-11-26] MEDS: ASCORBIC ACID 500 MG TABLET (FP) PO SCH (12:26)
[2021-11-26] MEDS: ASPIRIN 81 MG CHEWABLE TABLETS PO SCH (12:26)
[2021-11-26] MEDS: FLUTICASONE PROP 0.05% 16 GM NASAL SPRAY NS SCH (13:39)
[2021-11-26 17:34] VITALS: BMI 32.3
[2021-11-26] MEDS: LIDOCAINE PATCH REMOVAL MC SCH (22:03)
[2021-11-26] MEDS: DOCUSATE SODIUM 100 MG CAPSULE (FP) PO SCH (22:51)
[2021-11-26] MEDS: ATORVASTATIN CA 40 MG TABLET (FP) PO SCH (22:54)
[2021-11-27] MEDS: VANCOMYCIN 250 MG/5 ML ORAL SOLUTION PO SCH ×3 (02:12→11:12)
[2021-11-27] MEDS: NYSTATIN POWDER 100,000 UNITS/GM - 15 GM TOPICAL POWDER TP SCH ×3 (06:04→22:59)
[2021-11-27] MEDS: AMINO ACIDS/PROTEIN HYDROLYS 30 ML LIQUID.PKT PO SCH (11:02)
[2021-11-27] MEDS: ASPIRIN 81 MG CHEWABLE TABLETS PO SCH (11:03)
[2021-11-27] MEDS: FLUTICASONE PROP 0.05% 16 GM NASAL SPRAY NS SCH (11:10)
[2021-11-27] MEDS: APIXABAN 5 MG TABLET PO SCH ×2 (11:10→22:58)
[2021-11-27] MEDS: LIDOCAINE 5% TOPICAL PATCH TP SCH (11:10)
[2021-11-27] MEDS: LACTOBACILLUS ACIDOPHILUS 1 TABLET PO SCH (11:10)
[2021-11-27] MEDS: LORATADINE 10 MG TABLET PO SCH (11:10)
[2021-11-27] MEDS: ESCITALOPRAM OXALATE 10 MG TABLET PO SCH (11:10)
[2021-11-27] MEDS: ZINC SULFATE 220 MG CAPSULE (FP) PO SCH (11:10)
[2021-11-27] MEDS: MULTIVITAMINS (DAILY MVI) TABLET (FP) PO SCH (11:11)
[2021-11-27] MEDS: POTASSIUM CHLORIDE ORAL LIQUID 20 MEQ/15 ML PO SCH ×2 (11:11→22:58)
[2021-11-27] MEDS: LISINOPRIL 10 MG TABLET PO SCH (11:11)
[2021-11-27] MEDS: ASCORBIC ACID 500 MG TABLET (FP) PO SCH (11:11)
[2021-11-27] MEDS: FAMOTIDINE 20 MG TABLET PO SCH (11:11)
[2021-11-27] MEDS: SODIUM BICARBONATE 650 MG TABLET PO SCH ×2 (14:00→22:58)
[2021-11-27] MEDS: KCL 10 MEQ IVPB 10 MEQ/100 ML INFUS.BAG IVPB SCH ×2 (17:00→19:14)
[2021-11-27] MEDS: COLLAGENASE CLOSTRIDIUM HIST. 30 GRAMS TUBE TP SCH (17:18)
[2021-11-27] MEDS: ATORVASTATIN CA 40 MG TABLET (FP) PO SCH (22:58)
[2021-11-27] MEDS: LIDOCAINE PATCH REMOVAL MC SCH (22:59)
[2021-11-28] MEDS ORDERED: EPOETIN ALFA-EPBX 4,000 UNIT/ML VIAL IVPUSH ONE (06:00)
[2021-11-28] MEDS: NYSTATIN POWDER 100,000 UNITS/GM - 15 GM TOPICAL POWDER TP SCH ×3 (06:51→21:53)
[2021-11-28] MEDS: VANCOMYCIN 250 MG/5 ML ORAL SOLUTION PO SCH ×3 (09:13→18:43)
[2021-11-28] MEDS: AMINO ACIDS/PROTEIN HYDROLYS 30 ML LIQUID.PKT PO SCH ×3 (09:14→18:43)
[2021-11-28] MEDS: ASPIRIN 81 MG CHEWABLE TABLETS PO SCH (12:07)
[2021-11-28] MEDS: ZINC SULFATE 220 MG CAPSULE (FP) PO SCH (12:07)
[2021-11-28] MEDS: LISINOPRIL 10 MG TABLET PO SCH (12:07)
[2021-11-28] MEDS: ESCITALOPRAM OXALATE 10 MG TABLET PO SCH (12:07)
[2021-11-28] MEDS: LORATADINE 10 MG TABLET PO SCH (12:08)
[2021-11-28] MEDS: FAMOTIDINE 20 MG TABLET PO SCH (12:08)
[2021-11-28] MEDS: LACTOBACILLUS ACIDOPHILUS 1 TABLET PO SCH (12:08)
[2021-11-28] MEDS: APIXABAN 5 MG TABLET PO SCH ×2 (12:08→21:52)
[2021-11-28] MEDS: MULTIVITAMINS (DAILY MVI) TABLET (FP) PO SCH (12:08)
[2021-11-28] MEDS: ASCORBIC ACID 500 MG TABLET (FP) PO SCH (12:08)
[2021-11-28] MEDS: POTASSIUM CHLORIDE ORAL LIQUID 20 MEQ/15 ML PO SCH ×2 (12:09→21:54)
[2021-11-28] MEDS: LIDOCAINE 5% TOPICAL PATCH TP SCH (12:09)
[2021-11-28] MEDS: FLUTICASONE PROP 0.05% 16 GM NASAL SPRAY NS SCH (12:09)
[2021-11-28] MEDS: SODIUM BICARBONATE 650 MG TABLET PO SCH (12:10)
[2021-11-28] MEDS ORDERED: DEXTROSE 50%-WATER - 25 GM/50 ML VIAL IVPUSH ONE (14:19)
[2021-11-28 15:48] LABS: EPI CELLS 7 /uL (0-25.1); HYALINE CASTS 1 /uL (0-3.1); PH,URINE 5.5 (5.0-8.0); URINE APPEARANCE CLOUDY; URINE BACTERIA 34 /uL (0-1359); URINE BILIRUBIN NEGATIVE (NEGATIVE); URINE COLOR YELLOW; URINE GLUCOSE (UA) NEGATIVE (NEGATIVE); URINE KETONE NEGATIVE (NEGATIVE); URINE LEUK ESTERASE 3+ (NEGATIVE); URINE NITRITE NEGATIVE (NEGATIVE); URINE PROTEIN 2+ (NEGATIVE); URINE UROBILINOGEN 0.2 mg/dL (0.2-1.0); URINE WBC 1543 /uL (0-25.8)
[2021-11-28] MEDS: COLLAGENASE CLOSTRIDIUM HIST. 30 GRAMS TUBE TP SCH (18:44)
[2021-11-28 20:42] LABS: URINE RBC 474 /uL (0-23.9); YEAST NEGATIVE (NEGATIVE)
[2021-11-28] MEDS: ATORVASTATIN CA 40 MG TABLET (FP) PO SCH (21:52)
[2021-11-28] MEDS: LIDOCAINE PATCH REMOVAL MC SCH (22:04)
[2021-11-29] MEDS: VANCOMYCIN 250 MG/5 ML ORAL SOLUTION PO SCH ×4 (06:45→17:50)
[2021-11-29] MEDS: NYSTATIN POWDER 100,000 UNITS/GM - 15 GM TOPICAL POWDER TP SCH ×3 (06:48→22:31)
[2021-11-29] MEDS: LIDOCAINE 5% TOPICAL PATCH TP SCH (09:32)
[2021-11-29] MEDS: POTASSIUM CHLORIDE ORAL LIQUID 20 MEQ/15 ML PO SCH ×2 (09:32→22:30)
[2021-11-29] MEDS: AMINO ACIDS/PROTEIN HYDROLYS 30 ML LIQUID.PKT PO SCH ×2 (09:32→17:50)
[2021-11-29] MEDS: ZINC SULFATE 220 MG CAPSULE (FP) PO SCH (09:33)
[2021-11-29] MEDS: MULTIVITAMINS (DAILY MVI) TABLET (FP) PO SCH (09:33)
[2021-11-29] MEDS: LISINOPRIL 10 MG TABLET PO SCH (09:33)
[2021-11-29] MEDS: ESCITALOPRAM OXALATE 10 MG TABLET PO SCH (09:33)
[2021-11-29] MEDS: FAMOTIDINE 20 MG TABLET PO SCH (09:34)
[2021-11-29] MEDS: ASPIRIN 81 MG CHEWABLE TABLETS PO SCH (09:34)
[2021-11-29] MEDS: LORATADINE 10 MG TABLET PO SCH (09:34)
[2021-11-29] MEDS: ASCORBIC ACID 500 MG TABLET (FP) PO SCH (09:34)
[2021-11-29] MEDS: LACTOBACILLUS ACIDOPHILUS 1 TABLET PO SCH (09:34)
[2021-11-29] MEDS: APIXABAN 5 MG TABLET PO SCH ×2 (09:34→22:30)
[2021-11-29] MEDS: SODIUM BICARBONATE 650 MG TABLET PO SCH ×3 (09:35→22:30)
[2021-11-29] MEDS: COLLAGENASE CLOSTRIDIUM HIST. 30 GRAMS TUBE TP SCH (09:41)
[2021-11-29] MEDS: FLUTICASONE PROP 0.05% 16 GM NASAL SPRAY NS SCH (09:42)
[2021-11-29] MEDS: LIDOCAINE PATCH REMOVAL MC SCH (22:30)
[2021-11-29] MEDS: ATORVASTATIN CA 40 MG TABLET (FP) PO SCH (22:30)
[2021-11-29 23:32] VITALS: BP 153/56; PULSE 101; TEMP 99.4
== END 2021-11-29 22:50 | DRG 252 ==
LOC: JER 17:33 → JERBED 21:03 → J8W 11-14 21:53 → J7W 11-25 18:28
PROVIDERS: ATTEND Nurse Practitioner Acute Care
PROC: 047K3ZZ Dilation of Right Femoral Artery, Percutaneous Approach (ICD-10-PCS; 2021-11-16)
PROC: 047P3ZZ Dilation of Right Anterior Tibial Artery, Percutaneous Approach (ICD-10-PCS; 2021-11-16)
PROC: B40FYZZ Plain Radiography of Right Lower Extremity Arteries using Other Contrast (ICD-10-PCS; 2021-11-16)
PROC: B40DYZZ Plain Radiography of Aorta and Bilateral Lower Extremity Arteries using Other Contrast (ICD-10-PCS; principal; 2021-11-16 17:30)
PROC: 30233N1 Transfusion of Nonautologous Red Blood Cells into Peripheral Vein, Percutaneous Approach (ICD-10-PCS; 2021-11-19)
DX: I70.298 Other atherosclerosis of native arteries of extremities, other extremity (principal); G93.41 Metabolic encephalopathy; G04.1 Tropical spastic paraplegia; D62 Acute posthemorrhagic anemia; E87.0 Hyperosmolality and hypernatremia; A04.72 Enterocolitis due to Clostridium difficile, not specified as recurrent; E87.2 Acidosis; M86.9 Osteomyelitis, unspecified; N17.9 Acute kidney failure, unspecified; L97.828 Non-pressure chronic ulcer of other part of left lower leg with other specified severity; L97.818 Non-pressure chronic ulcer of other part of right lower leg with other specified severity; M86.8X8 Other osteomyelitis, other site; E78.5 Hyperlipidemia, unspecified; J44.9 Chronic obstructive pulmonary disease, unspecified; F25.9 Schizoaffective disorder, unspecified; E87.6 Hypokalemia; K21.9 Gastro-esophageal reflux disease without esophagitis; D64.9 Anemia, unspecified; I11.0 Hypertensive heart disease with heart failure; I50.9 Heart failure, unspecified; M19.90 Unspecified osteoarthritis, unspecified site; G89.29 Other chronic pain; B36.9 Superficial mycosis, unspecified; D72.829 Elevated white blood cell count, unspecified; Z88.9 Allergy status to unspecified drugs, medicaments and biological substances; E66.9 Obesity, unspecified; Z68.32 Body mass index [BMI] 32.0-32.9, adult
CPT/HCPCS: 36415; 36430; 70450-TC; 70551-TC; 73610-TC-LT-FY; 73610-TC-RT-FY; 73630-TC-LT; 75635-TC; 76000-TC-FY; 80048; 80053; 81003; 82272; 82803; 83735; 84100; 84132; 85025; 85027; 85610; 85651; 85730; 86140; 86850; 86900; 86901; 86922; 87040; 87070; 87077; 87086; 87186; 87205; 87324; 87449; 93005; 93010; 94760; 97161-GP; 99285-25; C9803; G0480; J0131; J1644; J2997; P9058; Q9967; U0003; U0005